=== PATIENT | female | born 1965 | race Caucasian/White ===

== ENCOUNTER 2019-01-03 09:19 | Inpatient (IN) ==
[2019-01-03 10:31] LABS: BASO# 0.02 X1000 (0.0-0.2); BASO% 0.1 % (0.0-0.8); EOS# 0.03 X1000 (0.0-0.7); EOS% 0.2 % (0.0-10.0); HEMATOCRIT 33.6 % (37.0-47.0); HEMOGLOBIN 9.3 g/dL (12.0-16.0); IMM GRAN# 0.07 X1000 (0.0-0.04); IMM GRAN% 0.4 % (0.0-0.5); LYMPH# 1.32 X1000 (1.2-3.4); LYMPH% 7.7 % (20.5-51.1); MCH 18.9 PG (27-31); MCHC 27.7 g/dL (33-37); MCV 68.4 FL (81-99); MONO# 1.31 X1000 (0.11-0.59); MONO% 7.7 % (1.7-9.3); MPV 10.4 FL (7.4-10.4); NEUT# 14.37 X1000 (1.4-6.5); NEUT% 83.9 % (42.2-75.2); PLT 525 X1000 (130-400); RBC 4.91 XMIL (4.2-5.4); RDW 26.5 % (11.5-14.5); WBC 17.12 X1000 (4.8-10.8)
[2019-01-03 10:32] LABS: URINE SOURCE CLEAN CATCH
[2019-01-03 10:44] LABS: BILIRUBIN URINE 2+ (NEGATIVE); BLOOD URINE 4+ (NEGATIVE); CLARITY SL. CLOUDY (CLEAR); COLOR AMBER; GLUCOSE URINE NEGATIVE (NEGATIVE); KETONE URINE TRACE mg/dL (NEGATIVE); LEUKOCYTES URINE 1+ (NEGATIVE); NITRITE URINE POSITIVE (NEGATIVE); PROTEIN URINE 1+(30 mg/dL) mg/dL (NEGATIVE); SP GRAVITY URINE 1.025; UROBILINOGEN URINE 12 mg/dL
[2019-01-03 10:45] LABS: URINE BACTERIA 3+ /HFP; URINE CAST GRANULAR PRESENT /LPF; URINE CRYSTAL CA OXALATE PRESENT /HPF; URINE EPITHELIAL CELLS >10 /HPF (<10); URINE RBC 20-40 /HPF (<10); URINE YEAST PRESENT /HPF
[2019-01-03 10:54] LABS: ESTIMATED GFR > 60
[2019-01-03 10:56] LABS: AGAP 12; BUN 12 mg/dL (8-22); CHLORIDE 98 mmol/L (98-107); COSMO 284; CREATININE 0.8 mg/dL (0.5-0.9); GLUCOSE 155 mg/dL (70-104); POTASSIUM 3.5 mmol/L (3.5-5.1); SODIUM 141 mmol/L (136-145); TCO2 31 mmol/L (25-35)
[2019-01-03 10:57] LABS: ALBUMIN 3.2 g/dL (3.5-5.0); ALKALINE PHOSPHATASE 1003 U/L (32-104); CALCIUM 15.5 mg/dL (8.8-10.2); GOT 150 U/L (10-30); GPT 154 U/L (10-36); LIPASE 13 U/L (13-60); TOTAL PROTEIN 7.6 g/dL (6.3-8.3)
[2019-01-03] MEDS ORDERED: LASIX IV ONE (11:01)
[2019-01-03] MEDS ORDERED: NS 1,000 ML IV ONE (11:02)
--- NOTE | 2019-01-03 11:03 | Diag Imaging Result Doc PS360 ---
EXAM: ABDOMEN FLAT/UPRIGHT HISTORY: abd pain/constipation TECHNIQUE: Flat and upright, two views COMPARISON: None. FINDINGS: No free air beneath the diaphragm. No bowel obstruction. No organomegaly. No foreign body. No abnormal abdominal calcifications. The small degenerative bone spurs. IMPRESSION: No acute abnormality. There is only mild constipation. Electronically signed by Simon Nielsen 01/03/2019 11:01 AM
[2019-01-03] MEDS ORDERED: ROCEPHIN 1 GM in NS 50 ML IV ONE (11:04)
[2019-01-03 11:10] LABS: HYPOCHROM 2+; INR 0.93; LYMPHS 13 % (21-51); MONO 3 % (1-9); PROTIME 12.9 Seconds (11.0-16.0); SEGS 84 % (42-75)
[2019-01-03 11:24] LABS: PTT > 200.0 Seconds (22.3-41.8)
--- NOTE | 2019-01-03 11:36 | Diag Imaging Result Doc PS360 ---
EXAM: CHEST-1 VIEW HISTORY: Sepsis protocol TECHNIQUE: Chest single view COMPARISON: None. FINDINGS: The lungs are well expanded. The heart is not enlarged. Prominent right pericardial fat pad The vessels are not distended. There are no infiltrates. No effusion identified. IMPRESSION: No pneumonia Electronically signed by Simon Nielsen 01/03/2019 11:34 AM
[2019-01-03] MEDS ORDERED: AREDIA 90 MG in NS 1,000 ML IV ONE (12:20)
--- NOTE | 2019-01-03 12:27 | Diag Imaging Result Doc PS360 ---
EXAM: CT ABD/PELVIS W/IV CONT ONLY HISTORY: abd pain TECHNIQUE: CT abdomen and pelvis with intravenous contrast COMPARISON: None. FINDINGS: There is a large enhancing mass in the upper right abdomen measuring 7.5 x 11.0 x 8.4 cm. This is adjacent to the gallbladder, liver, duodenum, stomach, and pancreatic head. It is difficult to tell from which of these this arises. There appears to be a plane it from the liver, stomach, duodenum, and pancreas although this is uncertain. There does appear to be adjacent gallbladder wall thickening and there is intra-and extrahepatic biliary ductal dilatation. No other hepatic lesion. Spleen is not enlarged. Normal pancreatic body and tail. Normal adrenal glands. Normal kidneys. No hydronephrosis. Normal aorta. The lower lungs are clear and there are no pleural effusions. No bowel obstruction. There are scattered colonic diverticula. Normal appendix. No abscess. There is likely a large uterine fibroid measuring 8 cm. The urinary bladder is distended and is normal. Neither ovary is enlarged. IMPRESSION: Large right upper quadrant mass of uncertain etiology. If it is not arising from the gallbladder, it does appear to have spread to the anterior gallbladder wall. This exam was performed using automated exposure control, adjustment of mA or kV according to patient size, and/or use of iterative reconstruction technique. Electronically signed by Simon Nielsen 01/03/2019 12:25 PM
--- NOTE | 2019-01-03 12:38 | PROVIDER DOCUMENTATION ---
This chart was entered by Wiliam Vega Scribe, acting as scribe for Aravind Khan CRNP. HPI-Abdominal Pain/GI Problem - General Chief Complaint: Vomiting Stated Complaint: VOMITING Time Seen by Provider: 01/03/19 09:40 Source: patient Allergies/Adverse Reactions: Patient Allergies Allergy/AdvReac Type Severity Reaction Status Date / Time No Known Allergies Allergy Verified 01/03/19 09:31 Home Medications: Home Medication List Medication Instructions Recorded Confirmed Last Taken Type NK [No Home Medications] 01/03/19 01/03/19 Unknown History - History of Present Illness-ABD Nature of Presenting Problems: Pt is a 53 y/o presents to the ED complaining of vomiting. She reports even the smell of food causes her to vomit. She says when she drinks water it will come right back up. She first report it has been a week and half since her last BM, then says she had something maybe Saturday,( 4 days ago). She geovanny abdominal pain. Quality of Pain: reports: none Onset/Duration: reports: unsure Timing: reports: still present Activities at Onset: reports: none, recent emotional stress Modifying Factors: improves with: nothing Associated Symptoms: reports: vomiting. denies: back/neck pain, cough, diarrhea, fever/chills, genitourinary problems, sinus congestion/drainage, seizure Last BM: 4 days ago Dark Stools Present?: reports: none noticed Emesis Description: reports: clear Review of Systems - Adult - REVIEW OF SYSTEMS - ADULT Constitutional: reports: no symptoms reported Eyes: reports: no symptoms reported Ears, Nose, Mouth & Throat: reports: no symptoms reported Cardiovascular: denies: chest pain, edema Respiratory: denies: cough, shortness of breath, wheezing Gastrointestinal: reports: constipation, vomiting. denies: abdominal pain, diarrhea, nausea, rectal bleeding Genitourinary: reports: no symptoms reported Musculoskeletal: denies: back pain, neck pain Integumentary: reports: no symptoms reported Neurological: denies: dizziness/vertigo, headache/migraines Psychiatric: reports: no symptoms reported Endocrine: reports: no symptoms reported Hematologic/Lymphatic: reports: no symptoms reported Allergic/Immunologic: reports: no symptoms reported All Other Systems: Reviewed and Negative Past History - Adult - PAST MEDICAL HISTORY-ADULT Review of Records: reports: Old Records Reviewed, Nursing Assessment Review, Medications Reviewed - SOCIAL HISTORY Smoking: non-smoker Living Situation: family Physical Exam-General - PHYSICAL EXAM-ADULT Initial Vital Signs Reviewed: Yes - CONSTITUTIONAL General Appearance: appears well, alert, no apparent distress - EYES Eyes: PERRL/EOMI, pink conjunctivae - HEAD, EARS, NOSE, MOUTH & THROAT HENMT: moist mucous membranes, normal ENT inspection - NECK Neck: non-tender, full range of motion, supple, normal inspection - RESPIRATORY Respiratory: lungs clear, normal breath sounds, no pleuratic chest pain, no respiratory distress, no accessory muscle use - CARDIOVASCULAR Cardiovascular: normal peripheral pulses, tachycardia - GASTROINTESTINAL (ABDOMEN) Abdominal Exam: normal bowel sounds, non tender, soft - MUSCULOSKELETAL Back Exam: normal inspection, no CVA tenderness, no vertebral tenderness Extremity: normal range of motion, non-tender, normal gait, normal inspection, no pedal edema - SKIN Integumentary: normal color, normal turgor, warm/dry - NEUROLOGIC Neurologic: grossly normal, no motor/sensory deficits - PSYCHIATRIC Psych/Mental Status: normal mood/affect, normal thought content, normal thought process, oriented x 3 Progress - PLAN OF CARE/RESULTS Progress/Plan/Lab Results: Vital Signs - 8 hr 01/03/19 09:27 Temperature 97.2 F L Pulse Rate 109 H Respiratory Rate 20 Blood Pressure 162/85 O2 Sat by Pulse Oximetry 97 Result Diagrams: 01/03/19 10:10 01/03/19 10:10 - REASSESSMENT Reassessment #1 Time Reassessed: 11:15 Status: other Reassessment Comment: unchanged with c/o dry mouth - XRAY 1 XRAY Study: Abdomen Impression: Abnormal ( EXAM: ABDOMEN FLAT/UPRIGHT HISTORY: abd pain/constipation TECHNIQUE: Flat and upright, two views COMPARISON: None. FINDINGS: No free air beneath the diaphragm. No bowel obstruction. No organomegaly. No foreign body. No abnormal abdominal calcifications. The small degenerative bone spurs. IMPRESSION: No acute abnormality. There is only mild constipation. Electronically signed by Simon Nielsen 01/03/2019 11:01 AM 01/03/19 1101 Interpreting Physician: Simon Nielsen MD Dictated Date/Time: 01/03/19 1100 cc: Aravind Khan; None,PCP) 2 XRAY: Bilateral XRAY Study: Chest Impression: Normal (FINDINGS: The lungs are well expanded. The heart is not enlarged. Prominent right pericardial fat pad The vessels are not distended. There are no infiltrates. No effusion identified. IMPRESSION: No pneumonia) - CT/MRI 1 CT Study: Abdomen, Pelvis Impression: Abnormal (FINDINGS: There is a large enhancing mass in the upper right abdomen measuring 7.5 x 11.0 x 8.4 cm. This is adjacent to the gallbladder, liver, duodenum, stomach, and pancreatic head. It is difficult to tell from which of these this arises. There appears to be a plane it from the liver, stomach, duodenum, and pancreas although this is uncertain. There does appear to be adjacent gallbladder wall thickening and there is intra- and extrahepatic biliary ductal dilatation. No other hepatic lesion. Spleen is not enlarged. Normal pancreatic body and tail. Normal adrenal glands. Normal kidneys. No hydronephrosis. Normal aorta. The lower lungs are clear and there are no pleural effusions. No bowel obstruction. There are scattered colonic diverticula. Normal appendix. No abscess. There is likely a large uterine fibroid measuring 8 cm. The urinary bladder is distended and is normal. Neither ovary is enlarged. IMPRESSION: Large right upper quadrant mass of uncertain etiology. If it is not arising from the gallbladder, it does appear to have spread to the anterior gallbladder wall.) - CONSULTS/PCP/HOSPITALIST Notification #1 *Consult/PCP/Hospitalist*: Dr Owen; Hospitalist Time Discussed: 12:11 Reason/Comments: admission Consult Disposition: Will see in ED Departure - Departure Date of Disposition Decision: 01/03/19 Time of Disposition Decision: 12:36 DIAGNOSIS: Abdominal mass, RUQ (right upper quadrant), Hypercalcemia, Elevated partial thromboplastin time (PTT) Urinary tract infection Qualifiers: Urinary tract infection type: acute cystitis Hematuria presence: with hematuria Qualified Code(s): N30.01 - Acute cystitis with hematuria Disposition: ADMITTED INPATIENT 09 Certified Medical Emergency: Emergent Condition: Fair Referrals and Follow-Ups: None,PCP [Primary Care Provider] - - Critical Care Note This patient required my direct & personal management of CC.: Yes Total Time (mins): 47 Critical Care Statement: This patient required my direct personal management to treat or rule out processes, the absence of which, could potentiallly result in sudden, clinically significant life or limb threatening deterioration. Attestation - Physician/ ROBI Attestation Patient care was provided by Advanced Practice Provider:: Yes Advanced Practice Provider:: Aravind Khan Advanced Practice Provider documentation review:: The Mid-level provider documentation, treatment plan and medical decision making was reviewed by the physician who agrees with all treatment and medical decision making by the MLP. The physician spent face to face time with patient:: No Advanced Practice Provider documentation review:: Supervising physician onsite and consulted in the evaluation and care of this patient. The physician did not have a face to face encounter with the patient. This chart was documented by the indicated scribe, (Wiliam Vega Scribe) and accurately reflects the services I performed and decisions made by , Aravind Khan, KEITH, as attested by the provider's signature.
[2019-01-03] MEDS ORDERED: ZANTAC IV SCH (14:15)
[2019-01-03] MEDS ORDERED: ZOMETA 4 MG in NS 100 ML IV ONE (16:00)
[2019-01-03] MEDS ORDERED: MIACALCIN SUBQ ONE (16:00)
[2019-01-03] MEDS ORDERED: LIPOSYN 20% 500 ML IV SCH (16:30)
[2019-01-03 16:58] LABS: AGAP 13; BUN 12 mg/dL (8-22); CHLORIDE 100 mmol/L (98-107); COSMO 287; CREATININE 0.9 mg/dL (0.5-0.9); ESTIMATED GFR > 60; GLUCOSE 139 mg/dL (70-104); POTASSIUM 3.5 mmol/L (3.5-5.1); SODIUM 143 mmol/L (136-145); TCO2 30 mmol/L (25-35)
[2019-01-03 17:12] LABS: IRON SATURATION 9 %; TIBC 322 ug/dL; TOTAL IRON 30 ug/dL (49-151); UNBOUND IRON 292 ug/dL (112-346)
[2019-01-03 17:45] LABS: CALCIUM 14.6 mg/dL (8.8-10.2)
[2019-01-03 17:48] LABS: FERRITIN 187 ng/mL (13-150)
[2019-01-03 17:50] LABS: PHOSPHORUS 2.9 mg/dL (2.7-4.5)
[2019-01-03 17:51] LABS: CALCIUM 14.6 mg/dL (8.8-10.2)
[2019-01-03] MEDS: ZOSYN 2.25 GM in NS 50 ML IV SCH (20:15)
[2019-01-03] MEDS: NS 1,000 ML IV SCH ×2 (20:16)
[2019-01-03] MEDS: PHENERGAN IV PRN (20:32)
[2019-01-03 20:48] LABS: AGAP 13; BUN 12 mg/dL (8-22); CALCIUM 14.1 mg/dL (8.8-10.2); CHLORIDE 102 mmol/L (98-107); COSMO 290; CREATININE 0.8 mg/dL (0.5-0.9); ESTIMATED GFR > 60; GLUCOSE 129 mg/dL (70-104); POTASSIUM 3.5 mmol/L (3.5-5.1); SODIUM 145 mmol/L (136-145); TCO2 30 mmol/L (25-35)
--- NOTE | 2019-01-03 23:22 | HISTORY AND PHYSICAL ---
Patient came in with nausea, vomiting and poor p.o. intake. She is a no real medical problems. She has no drinking history nothing and she came in for evaluation. She is a 53-year-old female. She was noted to have severe hypercalcemia with a calcium level of 15. Pt has a mass palpable in RUQ. She has had an approximate [address] shows a large mass in her RUQ with an unclear tissue of origin. I am suspicious that her hypercalcemia is related to mailgnancy. We will check other labs for hypercalcemia and treat with pamindronate. We will send to [facility] for consults for surgery, oncology and GI. She has biliary obstruction related to the mass as well and will need this addressed as well, either lap josh or cholecystostomy tube. This was discussed with primary team and Dr Sandhu. cc: En Owen MD MTD
[2019-01-03] MEDS: ZANTAC 50 MG in NS 50 ML IV SCH (23:34)
[2019-01-04] MEDS: ZOSYN 2.25 GM in NS 50 ML IV SCH ×4 (00:14→20:56)
[2019-01-04] MEDS: CLINIMIX E 4.25%-5% SOLUTION 1,000 ML IV SCH ×3 (01:21→22:22)
[2019-01-04] MEDS: LIPOSYN 20% 250 ML IV SCH ×3 (01:36→20:54)
--- NOTE | 2019-01-04 02:04 | HISTORY AND PHYSICAL ---
CHIEF COMPLAINT: Nausea, vomiting that has progressively worsened over the last 2 months, to the point over the past 2 weeks she has been unable to hold any liquids down as well. HISTORY OF PRESENT ILLNESS: This is a 53-year-old female who presents to [facility] ER with complaints of nausea, vomiting. States this has been occurring for the past 2 months. Over the past 2 weeks even drinking water has caused her to vomit. She has had some mild right upper quadrant epigastric abdominal pain. Her workup showed a white blood cell count of 17.12. Her PTT was initially greater than 200, her calcium level was 15.5, total bilirubin was 4.40, AST 150, ALT 154, alkaline phosphatase 1003. We did an abdomen x-ray that showed no acute abnormality, only mild constipation. CT of the abdomen and pelvis showed a large right upper quadrant mass of uncertain etiology, if it is not arising from the gallbladder it does appear to have spread to the anterior gallbladder wall. No bowel obstruction is noted. Patient is noted to be jaundiced with scleral icterus noted, roe she will be transferred to the [facility] for further evaluation and treatment. PAST MEDICAL HISTORY: None. PAST SURGICAL HISTORY: Bilateral tubal ligation. FAMILY HISTORY: Her mom and aunt had cervical cancer. SOCIAL HISTORY: She currently lives with family. Denies any tobacco, alcohol, or illicit drug use. ALLERGIES: She has no known drug allergies. HOME MEDICATIONS: She does not take any medications on a routine basis. LABORATORY DATA: Showed a white blood cell count of 17.12, hemoglobin 9.3, hematocrit 33.6, platelets 525. PT and INR of 12.9 and 0.93. Initial PTT was greater than 200. Repeat 2-1/2 hours later was down to 29. An ionized calcium was 1.99, sodium of 141, potassium 3.5, chloride 98, CO2 of 31, BUN of 12, creatinine 0.8. Glucose 85, calcium 15.5, magnesium 2.1, total bilirubin of 4.40, AST of 150, ALT 154, alkaline phosphatase 1003. Cardiac enzymes were negative. Amylase of 25, lipase 13, plasma lactate 1.2. Urinalysis with positive nitrite, 1+ white blood cells, 3+ bacteria. Urine test was negative. Abdomen x-ray showed no acute abnormality, only mild constipation. Chest x-ray showed no pneumonia. Abdomen and pelvis CT showed an impression of a large right upper quadrant mass of uncertain etiology, if it is not arising from the gallbladder it does appear to have spread to the anterior gallbladder wall. The mass was measured at 7.5 x 11 x 8.4. REVIEW OF SYSTEMS: She denied any fever, chills, blurred vision, dizziness, chest pain, coughing, shortness of breath. She is positive for right upper quadrant abdominal pain, nausea, vomiting, jaundice. Denied any constipation, diarrhea. She denies any burning or hurting with urination. PHYSICAL EXAMINATION: VITAL SIGNS: On arrival, she had a temperature of 102 degrees, pulse 109, respirations 20, blood pressure 162/85, saturating 97% on room air. GENERAL: This is a 53-year-old female lying in the bed and answers questions appropriately. HEENT: She is noted to be jaundiced in color. Normal ENT inspection. Oropharynx and nares are clear. Eyes with scleral icterus. Extraocular movements are intact. Pupils are equal, round, and reactive to light and accommodation. NECK: Normal inspection. Normal range of motion. LUNGS: Clear to auscultation bilaterally with equal lung expansion and chest wall movement. HEART: With regular rate and rhythm. No murmurs, rubs, or gallops. ABDOMEN: Soft. There is some mild tenderness to the right upper quadrant upon palpation. Bowel sounds were hypoactive. MUSCULOSKELETAL: She has 5/5 strength. Moves all extremities well. NEUROLOGICAL: The cranial nerves 2-12 appear grossly intact. ASSESSMENT: 1. Right upper quadrant mass of uncertain etiology. 2. Hypercalcemia. 3. Urinary tract infection. 4. Jaundice. 5. Elevated liver function tests secondary to #1. PLAN: She is being transferred to the [facility]. Placed on healthy heart diet, telemetry. Funez catheter indwelling. SCDs for DVT prophylaxis. We are consulting general surgery and we will check a TIBC, ferritin, folate, vitamin B12, PTH, with CEA and phosphorus, serum protein electrophoresis, vitamin B12, plasma lactate, serial BMP, do a CT-guided liver biopsy. We gave her 50 units of calcitonin, normal saline at 150 mL/h, Zantac 50 mg IV q.8 hours, morphine 2 mg IV q.4 hours p.r.n., normal saline at 100 mL/h, Zosyn 2.25 g IV q.6 hours. Check an ammonia level, hepatic function. Remain NPO. We will consult Gastroenterology and Oncology. Further orders after seen by attending and by consultants. Dictated by KEITH Brunson for En Owen MD cc: KEITH Brunson MD
[2019-01-04] MEDS ORDERED: TORADOL IV ONE (03:03)
[2019-01-04] MEDS: NS 1,000 ML IV SCH ×4 (04:04→13:52)
--- NOTE | 2019-01-04 05:15 | GENERAL SURGERY CONSULTATION ---
DATE: 01/03/2019 REASON FOR CONSULTATION: Liver mass. HISTORY OF PRESENT ILLNESS: This is a 53-year-old female who presented to the hospital with progressive nausea and vomiting. She says she began feeling nauseated and weak about 2 months ago. She has lost about 80 pounds since that time. She has had episodes of vomiting intermittently during this time, and then over the last 2 weeks she has had much worsened vomiting. She has been unable to keep much of anything down by mouth. She has had a few bowel movements, but her last 1 was 3 or 4 days ago. She denies abdominal pain, fever, chills, or other systemic complaints. PAST MEDICAL HISTORY: None. PAST SURGICAL HISTORY: Bilateral tubal ligation. HOME MEDICATIONS: None. ALLERGIES: No known drug allergies. SOCIAL HISTORY: Negative for tobacco, alcohol or illicit drug use. FAMILY HISTORY: She has a mother and aunt who had ovarian cancer. REVIEW OF SYSTEMS: Ten systems reviewed and negative, except as noted above. PHYSICAL EXAMINATION: Vital Signs: Temperature 97 degrees, pulse 72, respirations 16, blood pressure 139/83. O2 saturation 99%. General: Well-developed female in no distress, looks her stated age. HEENT: Normocephalic, atraumatic. Extraocular muscles intact. Pupils equal, round, reactive to light. Sclerae slightly icteric. Neck: Supple. No thyromegaly. Cardiovascular: Regular rate and rhythm. Respiratory: Bilateral equal breath sounds. No work of breathing. Gastrointestinal: Soft, obese. There is a firm palpable mass in the right upper quadrant, nontender. No organomegaly or mass. Extremities: No clubbing, cyanosis, or edema. Abdomen: Nontender and nondistended. There is no organomegaly. Extremities: No clubbing, cyanosis, or edema. Skin: Warm and dry. No rash. Musculoskeletal: Moves all extremities equally and well. LABORATORY: White blood cell count 17,000, hemoglobin 9, hematocrit 33.6, platelet count 525,000. Basic metabolic profile reviewed and unremarkable, except for calcium 15.5, total bilirubin 4.4, AST 150, ALT 154, alkaline phosphatase 1003. Lipase and amylase normal. Urinalysis: Positive for nitrite, white blood cells, and bacteria. Urine test negative. IMAGING: CT of abdomen and pelvis with IV contrast only shows a large right upper quadrant mass of uncertain etiology. It measures 11 cm in greatest dimension. It abuts the gallbladder, liver, duodenum, stomach and pancreatic head. There is intra- and extrahepatic biliary ductal dilation. ASSESSMENT AND PLAN: A 53-year-old female with gastric outlet obstruction secondary to a right upper quadrant mass. The etiology is unclear. We will make her NPO and start Clinimix and lipids. I have consulted Dr. Roque for EGD evaluation, and then I am planning a CT scan on Saturday with oral and triple phase IV antibiotics for further elucidation of this mass. It remains to be seen if this is even resectable. Thank for the consultation. cc: Lavelle Sandhu MD
[2019-01-04] MEDS: ZANTAC 50 MG in NS 50 ML IV SCH ×3 (05:20→22:22)
[2019-01-04 08:06] LABS: BASO# 0.04 X1000 (0.0-0.2); BASO% 0.2 % (0.0-0.8); EOS# 0.06 X1000 (0.0-0.7); EOS% 0.3 % (0.0-10.0); HEMATOCRIT 30.9 % (37.0-47.0); HEMOGLOBIN 8.7 g/dL (12.0-16.0); IMM GRAN# 0.15 X1000 (0.0-0.04); IMM GRAN% 0.7 % (0.0-0.5); LYMPH# 1.45 X1000 (1.2-3.4); LYMPH% 7.2 % (20.5-51.1); MCH 19.4 PG (27-31); MCHC 28.2 g/dL (33-37); MONO# 1.37 X1000 (0.11-0.59); MONO% 6.8 % (1.7-9.3); MPV 11.4 FL (7.4-10.4); NEUT# 17.09 X1000 (1.4-6.5); NEUT% 84.8 % (42.2-75.2); PLT 404 X1000 (130-400); RBC 4.48 XMIL (4.2-5.4); RDW 27.4 % (11.5-14.5); WBC 20.16 X1000 (4.8-10.8)
[2019-01-04 08:23] LABS: ALB/GLOB RATIO 0.7; ALBUMIN 2.8 g/dL (3.5-5.0); DIRECT BILIRUBIN 3.7 mg/dL (0.00-0.20); POTASSIUM 3.1 mmol/L (3.5-5.1); TOTAL BILIRUBIN 4.44 mg/dL (0.20-1.00); TOTAL PROTEIN 6.7 g/dL (6.3-8.3)
[2019-01-04] MEDS: MORPHINE IV PRN (08:53)
[2019-01-04] MEDS ORDERED: VENOFER 200 MG in NS 100 ML IV SCH (09:00)
[2019-01-04 09:28] LABS: CALCIUM 12.8 mg/dL (8.8-10.2)
--- NOTE | 2019-01-04 09:59 | Diag Imaging Result Doc PS360 ---
EXAM: CT HEAD W/O CONTRAST HISTORY: headache TECHNIQUE: Emergency CT of the head without contrast COMPARISON: None. FINDINGS: No parenchymal hemorrhage. No epidural or subdural hematoma. No subarachnoid hemorrhage. No mass identified on this noncontrasted exam. No hydrocephalus. There is fluid in the left mastoid sinus IMPRESSION: 1.No hemorrhage 2.Fluid in the left mastoid sinus This exam was performed using automated exposure control, adjustment of mA or kV according to patient size, and/or use of iterative reconstruction technique. Electronically signed by Simon Nielsen 01/04/2019 9:57 AM
--- NOTE | 2019-01-04 10:44 | CONSULTATION ---
DATE OF CONSULTATION: 01/04/2019 HISTORY OF PRESENT ILLNESS: Ms. Stuart is a 53-year-old white female with no known history of malignancy, admitted with intractable nausea, vomiting and weight loss. She states that anytime she was around food, smelled food, she had nausea, and she has been unable to hold down solid foods for almost 2 to 3 months. She has lost 60 to 80 pounds in that time period. She surprisingly had very little abdominal pain. She has had only infrequent bowel movements this past week but denies melena or hematochezia. She has had headache in the past 24 to 48 hours since being admitted. PAST MEDICAL HISTORY: Essentially negative. MEDICATIONS: She was on no medications. PAST SURGICAL HISTORY: She has had tubal ligation. ALLERGIES: No known allergies. SOCIAL HISTORY: She does not smoke or drink. Denies any illicit drugs. FAMILY HISTORY: She has a mother with ovarian cancer. REVIEW OF SYSTEMS: Notable for the above complaints. She has had weakness. She denies any chest pain. She has had no cough or hemoptysis. No hematemesis and no melena. PHYSICAL EXAMINATION: An obese white female in no acute distress. Her blood pressure was normotensive. Pulse was 80 and regular. HEENT: There is no icterus. Oropharynx without lesions. Dentition in poor repair. Neck was supple without adenopathy or thyromegaly. Lungs revealed bilateral breath sounds, clear to auscultation and percussion. Heart: Regular rate and rhythm. No murmur or gallop. The abdomen was obese. There was a firm swelling in the right upper quadrant. I could not really appreciate the borders of her mass, but it is certainly palpable. Abdomen had hypoactive bowel sounds. There was no guarding or rebound tenderness. Extremities showed no cyanosis, clubbing or edema. Neurologic: Nonfocal. DIAGNOSTIC DATA: Her initial blood work reveals a hemoglobin of 9, hematocrit 33.6, white count was elevated at 17,000, platelets normal. Metabolic profile was notable for a calcium of 15.5. Liver function tests were elevated. Bilirubin was elevated at 4.4 with an alkaline phosphatase of 1000. Urinalysis was positive for nitrites, white cells and bacteria. CT scan of the abdomen and pelvis shows a large right upper quadrant mass measuring 11 x 8 x 7.5 cm. It was questionable whether this arose from the pancreatic or biliary tree. There was no associated adenopathy. Chest x-ray showed no abnormality. IMPRESSION: 1. Right upper quadrant mass with presumed pancreatic or biliary or gallbladder primary. The patient obviously needs a tissue diagnosis to confirm. She has hypercalcemia of malignancy and has received appropriate treatment with saline and Aredia. Her calcium level this morning is improved at 12.8. I would repeat Aredia infusion at 48 hours and continue saline hydration to promote calcium excretion. The patient was complaining of headache this morning, and I would recommend a CT or an MRI of the brain to rule out [employer] metastasis, although this appears to be related to her treatment of hypercalcemia. 2. Probable urinary tract infection. She has been started empirically on antibiotics which is appropriate. 3. Abnormal liver function tests. This appears to be secondary to her underlying tumor. I have discussed all of the above with the patient and her mother, who voiced understanding and agreement. cc: Rubén Clay MD
--- NOTE | 2019-01-04 10:45 | PROGRESS NOTE ---
DATE: 01/04/2019 SUBJECTIVE: This morning, Ms. Stuart refers to be feeling slightly lightheaded. She also complained of some headaches.. Ms. Stuart was transferred from [place] yesterday over here for a higher level of care. She has had approximately over a 60 pound weight loss within a month. No appetite. Upon presenting to [place], she was evaluated and found to have an intra-abdominal right upper quadrant mass of uncertain etiology. This morning, she think she feels slightly stronger than yesterday. OBJECTIVE: Vital Signs: Blood pressure is 136/70, pulse of 110, respirations are 16, temperature is 102.7 degrees and a repeat is 103. General Examination: Ms. Stuart is a 61-year-old, female. She is in bed. She does not seem to be in any cardiopulmonary distress. HEENT: Mucosa is pink, slightly icteric. Neck: Supple. No JVD. Chest: Good air entry bilaterally. There were no crepitations, no rhonchi. Cardiovascular: Regular rate and rhythm. There are no murmurs, no rubs, no gallops. GI: Abdomen is soft. It is distended. There is a palpable mass in the right upper quadrant. It is nontender. Extremities: No pedal edema. 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 Laboratory Data: WBC is up to 20.16, hemoglobin is 8.7, platelet count of 404,000. Chemistry is also reviewed. Calcium is down to 12.8. Liver enzymes are all elevated but they are trending down. The urinalysis seems to be positive with nitrites. So far, blood cultures are still pending. The patient is on IV antibiotics (Zosyn). A CT scan of the abdomen and pelvis with IV contrast yesterday showed a large right upper quadrant mass of uncertain etiology. If it is not arising from the gallbladder, it does appear to have spread to the anterior gallbladder wall. ASSESSMENT: 1. A large right upper quadrant mass of uncertain etiology. It appears that it is arising from either the gallbladder or the pancreas. Hematology/oncology and surgery have been consulted. We are going to continue to do the workup to get a better idea. With the history, it certainly does appear that this is a malignant mass. 2. Malignant hypercalcemia. Patient was given Aredia yesterday. She is currently on intravenous fluids. Calcium is trending down. 3. Suspected urinary tract infection. The patient is on intravenous antibiotics. 4. Jaundice associated with fever, concerning for cholangitis. The patient is on broad-spectrum intravenous antibiotics. Blood cultures have been done and we are pending the results. 5. Iron deficiency anemia. Will hold off on venofer infusion until after infection cleared. 6. Generalized weakness associated with significant weight loss, likely due to the underlying malignancy. 7. Sepsis. Etiology is currently unclear. We presume it is either from urinary tract infection or from cholangitis. Blood cultures have been done. Patient is on broad- spectrum intravenous antibiotics. We will continue adequate hydration and await for the culture report. The patient is also pending to be seen by gastroenterology for possible esophagogastroduodenoscopy and possible endoscopic retrograde cholangiopancreatography. PLAN: In general, I think Ms. Stuart is very sick. She has been spiking some temperature. White cell count has gone up. We think she has some infection going on. It probably from the urinary tract infection. However, we also suspect that there could be stasis in the CBD causing some element of cholangitis. Patient is on IV antibiotics. GI has been consulted. The patient is also being seen by surgery. We are going to continue with the IV fluids and continue monitoring the calcium levels, and await for the other lab work that has been sent out for the calcium studies. cc: Ariel Kaur MD MTDTyrel
[2019-01-04 11:05] LABS: ANISOCYTOSIS 2+; BANDS 6 % (0-1); HYPOCHROM 2+; LYMPHS 4 % (21-51); MICROCYTOSIS 3+; MONO 12 % (1-9); POIKILOCYTOSIS 1+; SEGS 78 % (42-75)
[2019-01-04] MEDS: TYLENOL PO PRN ×2 (12:47→21:07)
--- NOTE | 2019-01-04 14:16 | GENERAL SURGERY PROGRESS NOTE ---
DATE: 01/04/2019 SUBJECTIVE: There have been no acute changes overnight. OBJECTIVE: Temperature maximum 102.7 degrees, pulse 110, respirations 16, blood pressure 136/70.General: She is awake, alert, oriented x4. No acute distress. Gastrointestinal: Soft with mass in the right upper quadrant, nontender. LABORATORY: White blood cell count 20,000, hemoglobin 8.7, hematocrit 30.9. Electrolytes reviewed and unremarkable. Total bilirubin 4.4, AST 91, ALT 123, alkaline phosphatase 928. ASSESSMENT AND PLAN: A 53-year-old female with right upper quadrant mass and gastric outlet obstruction. We have made her n.p.o. and started her on Clinimix. Dr. Roque has been consulted for EGD evaluation, and we are planning a triple-phase CT scan on Saturday. cc: Lavelle Sandhu MD
[2019-01-04] MEDS: PHENERGAN IV PRN (18:01)
--- NOTE | 2019-01-04 18:50 | GASTROENTEROLOGY CONSULTATION ---
DATE: 01/04/2019 REASON FOR CONSULTATION: Right upper quadrant mass and possible gastric outlet obstruction. HISTORY OF PRESENT ILLNESS: This is a pleasant lady who comes in with 2-to-3 week history of persistent nausea and vomiting, even unable to keep anything down even water down. I was asked to see if she has gastric outlet obstruction. However, when I reviewed the abdominal CT as well as abdominal x-ray, I do not see any dilated stomach. Abdominal x-ray did not reveal any duodenal obstruction either. Her calcium level is 15.5, and bilirubin and LFTs are all abnormal with the dilated intra- and extrahepatic bile ducts. PAST MEDICAL HISTORY: None. PAST SURGICAL HISTORY: Bilateral tubal ligation. FAMILY HISTORY: Cervical cancer. SOCIAL HISTORY: Lives with family. ALLERGIES: None. HOME MEDICATIONS: None. PHYSICAL EXAMINATION: She came in with fever. Today, also she had fever. A 61-year-old lady not in any cardiopulmonary distress. HEENT: Icteric. Heart: Normal. Lungs: Normal. Abdomen: Distended. There is a mass in the right upper quadrant. Mildly tender. LABORATORY DATA: White count 20,000. Hemoglobin low. Platelet count 404,000. Calcium is down to 12.8. LFTs are trending down. The patient is on Zosyn. IMPRESSION: 1. And plan a large right upper quadrant mass of uncertain etiology. Rule out mass with abscess because she appears to be infected. 2. Malignant hypercalcemia. 3. Urinary tract infection. 4. Jaundice. cholangitis versus infected Tumor/abscess. 5. Iron-deficiency anemia. 6. Weakness. 7. Sepsis. 8. Gastrointestinal prophylaxis. RECOMMENDATIONS: We will see how she does clinically. N.p.o. on Clinimix is good. I am not sure she is obstructed. This is all related to her severe malignant hyperglycemia and sepsis but would do an EGD, but she also needs three-phase CT and possibly surgical intervention to look at this mass which has [*] abnormalities but also has a mass affect pressing on the bile duct. Possibility of gallbladder cancer is there but doubt considering the size of the tumor. Will continue to follow this patient with you. We will plan on possibly doing an EGD on Saturday. cc: Reagan Roque MD
[2019-01-05] MEDS: NS 1,000 ML IV SCH ×3 (02:54→23:19)
[2019-01-05] MEDS: ZOSYN 2.25 GM in NS 50 ML IV SCH ×4 (03:11→21:15)
[2019-01-05] MEDS: ZANTAC 50 MG in NS 50 ML IV SCH ×3 (04:04→23:19)
[2019-01-05] MEDS: TYLENOL PO PRN ×2 (06:17→21:28)
[2019-01-05 07:00] LABS: BASO# 0.02 X1000 (0.0-0.2); BASO% 0.1 % (0.0-0.8); EOS# 0.05 X1000 (0.0-0.7); EOS% 0.3 % (0.0-10.0); HEMATOCRIT 27.4 % (37.0-47.0); HEMOGLOBIN 7.5 g/dL (12.0-16.0); IMM GRAN# 0.06 X1000 (0.0-0.04); IMM GRAN% 0.4 % (0.0-0.5); LYMPH# 1.58 X1000 (1.2-3.4); LYMPH% 9.9 % (20.5-51.1); MCH 19.3 PG (27-31); MCHC 27.4 g/dL (33-37); MCV 70.6 FL (81-99); MONO% 8.8 % (1.7-9.3); MPV 10.9 FL (7.4-10.4); NEUT# 12.89 X1000 (1.4-6.5); NEUT% 80.5 % (42.2-75.2); PLT 366 X1000 (130-400); RBC 3.88 XMIL (4.2-5.4); RDW 26.2 % (11.5-14.5)
[2019-01-05 07:12] LABS: AGAP 10; BUN 14 mg/dL (8-22); CHLORIDE 101 mmol/L (98-107); COSMO 281; GLUCOSE 154 mg/dL (70-104); POTASSIUM 2.7 mmol/L (3.5-5.1); SODIUM 139 mmol/L (136-145); TCO2 28 mmol/L (25-35)
[2019-01-05 07:13] LABS: ALB/GLOB RATIO 0.7; ALBUMIN 2.6 g/dL (3.5-5.0); ALKALINE PHOSPHATASE 785 U/L (32-104); CALCIUM 11.2 mg/dL (8.8-10.2); CREATININE 0.8 mg/dL (0.5-0.9); ESTIMATED GFR > 60; GOT 85 U/L (10-30); GPT 110 U/L (10-36); TOTAL BILIRUBIN 6.61 mg/dL (0.20-1.00); TOTAL PROTEIN 6.3 g/dL (6.3-8.3)
[2019-01-05] MEDS: SODIUM CHLORIDE 0.9% INJ PRN ×2 (08:53→17:49)
[2019-01-05] MEDS: PHENERGAN IV PRN ×2 (08:53→17:49)
[2019-01-05] MEDS: LIPOSYN 20% 250 ML IV SCH (09:10)
[2019-01-05] MEDS ORDERED: KLOR-CON PO ONE (10:06)
--- NOTE | 2019-01-05 11:41 | GENERAL SURGERY PROGRESS NOTE ---
DATE: 01/05/2019 SUBJECTIVE: Clinically, overall, seemed about the same. Having some nausea, she says. OBJECTIVE: Temperature up to 102, but afebrile this morning. General: She is alert. She does appear to be jaundiced. Abdomen is soft, nontender. White count is down to 16. Her bilirubin is elevated at 6.61. ASSESSMENT AND PLAN: This is a 53-year-old female with a right upper quadrant mass, possible gallbladder etiology. Dr. Roque plans esophagogastroduodenoscopy. She may ultimately need endoscopic retrograde cholangiopancreatography as well, given her obstructive jaundice picture. We will continue to follow along. Follow his results or findings tomorrow. cc: Kareem Neumann MD
[2019-01-05] MEDS: CLINIMIX E 4.25%-5% SOLUTION 1,000 ML IV SCH (12:19)
[2019-01-05] MEDS: POTASSIUM CHLORIDE 20 MEQ/SWI 20 MEQ/100 ML IVPB IV SCH ×2 (13:08→15:17)
[2019-01-05 14:28] LABS: HEMOGLOBIN 7.7 g/dL (12.0-16.0)
--- NOTE | 2019-01-05 14:47 | PROGRESS NOTE ---
DATE: 01/05/2019 SUBJECTIVE: She has no major complaints. She is lying in bed. She still has a very kind of happy disposition. OBJECTIVE: Blood pressure 120/53, heart rate of 75, respiratory rate of 20, temperature 100.6 degrees.Cardiovascular: Regular rate and rhythm. Pulmonary: Bilateral breath sounds clear to auscultation. GI: Soft. She has an indurated mass in her right upper quadrant. She has scleral icterus on eye exam. LABORATORY DATA: Potassium is 2.7, her creatinine is 0.8, her calcium is down to 11.2, her T bilirubin is up to 6.6, AST and ALT of 85, 110, alkaline phosphatase of 785. PROBLEM LIST: 1. Right upper quadrant mass which may be biliary versus pancreatic cholangiocarcinoma. We are waiting on treatment. I still think she needs a biopsy but we are possibly doing a biopsy, Dr. Sandhu canceled the biopsy but I guess she is going to get a EEG tomorrow and possibly they will get a biopsy at that point. I guess if we do not get tissue from EGD she may need a biopsy but will continue to monitor. Continue supportive care. Her tumor markers are still pending. Her CA was elevated but is not very specific unfortunately. 2. Hypercalcemia again presumably of malignancy. Workup is in place. She has had pamidronate recently. She is getting normal saline. 3. Severe protein-calorie malnutrition. She is on Clinimix and triglycerides. Will continue to follow because she has not really been able to eat. 4. Possible cholangitis, biliary obstruction. She is on Zosyn. Cultures are thus far negative. She still has very elevated liver enzymes. We are waiting on a 3-phase CT scan and then decide about other treatment options. She will need an EGD and possibly ERCP. Anticipate we are going to do those tomorrow. I think at some point with her gallbladder dilation she may need some sort of intervention from that standpoint especially if her levels continue to rise. 5. Hypokalemia which may be a type of refeeding. We will get her treatment, will supplement and follow. cc: En Owen MD
[2019-01-06] MEDS: CLINIMIX E 4.25%-5% SOLUTION 1,000 ML IV SCH ×2 (01:33→13:30)
[2019-01-06] MEDS: ZOSYN 2.25 GM in NS 50 ML IV SCH ×3 (02:30→13:35)
[2019-01-06] MEDS: ZANTAC 50 MG in NS 50 ML IV SCH ×3 (05:40→21:41)
[2019-01-06 08:23] LABS: BASO# 0.01 X1000 (0.0-0.2); BASO% 0.1 % (0.0-0.8); EOS% 0.8 % (0.0-10.0); HEMATOCRIT 24.1 % (37.0-47.0); HEMOGLOBIN 6.6 g/dL (12.0-16.0); IMM GRAN# 0.06 X1000 (0.0-0.04); IMM GRAN% 0.5 % (0.0-0.5); LYMPH# 1.23 X1000 (1.2-3.4); LYMPH% 9.3 % (20.5-51.1); MCH 19.3 PG (27-31); MCHC 27.4 g/dL (33-37); MCV 70.5 FL (81-99); MONO# 1.14 X1000 (0.11-0.59); MONO% 8.6 % (1.7-9.3); NEUT# 10.66 X1000 (1.4-6.5); NEUT% 80.7 % (42.2-75.2); PLT 302 X1000 (130-400); RBC 3.42 XMIL (4.2-5.4); RDW 26.2 % (11.5-14.5)
[2019-01-06] MEDS ORDERED: DIPRIVAN 1% ONE (08:26)
[2019-01-06] MEDS ORDERED: XYLOCAINE-MPF 2% ONE (08:27)
[2019-01-06 08:39] LABS: AGAP 10; ALB/GLOB RATIO 0.6; ALBUMIN 2.1 g/dL (3.5-5.0); ALKALINE PHOSPHATASE 625 U/L (32-104); BUN 11 mg/dL (8-22); CALCIUM 9.6 mg/dL (8.8-10.2); CHLORIDE 103 mmol/L (98-107); COSMO 275; CREATININE 0.5 mg/dL (0.5-0.9); ESTIMATED GFR > 60; GLUCOSE 167 mg/dL (70-104); GOT 40 U/L (10-30); GPT 70 U/L (10-36); POTASSIUM 3.3 mmol/L (3.5-5.1); SODIUM 136 mmol/L (136-145); TCO2 23 mmol/L (25-35); TOTAL BILIRUBIN 4.23 mg/dL (0.20-1.00); TOTAL PROTEIN 5.6 g/dL (6.3-8.3)
--- NOTE | 2019-01-06 09:40 | OPERATIVE NOTE ---
PROCEDURE DATE: 01/06/2019 PROCEDURE PERFORMED: Upper GI endoscopy. PROVIDER: Rubén Bautista MD. INDICATIONS: Intra-abdominal mass, anemia, rule out upper GI etiology. MEDICATIONS: Monitored anesthesia care. DESCRIPTION OF PROCEDURE: Prior to procedure, a history and physical was performed. Patient medication and allergies were reviewed. The patient's tolerance to previous anesthesia was also reviewed. The risks and benefits of the procedure and sedation options and risks were discussed with the patient. All questions were answered and informed consent was obtained. After reviewing the risks and benefits, the patient was deemed in satisfactory condition to undergo the procedure. The endoscope was passed under direct visualization. Throughout the procedure, the patient's blood pressure, pulse, and oxygen saturation were monitored continuously. Endoscope was advanced through the mouth and advanced to the second part of the duodenum. The upper GI endoscopy was accomplished without difficulty. The patient tolerated the procedure well. COMPLICATIONS: No immediate complications. ESTIMATED BLOOD LOSS: Minimal. FINDINGS: Normal upper GI endoscopy. The Z-line was regular at 40 cm from the incisors. IMPRESSION: Normal endoscopy. RECOMMENDATIONS: Start clear liquid diet. We will discuss with Dr. Roque further evaluation of intraabdominal mass. We will follow with you. Please call with any questions or concerns. [facility]
[2019-01-06] MEDS: MORPHINE IV PRN (11:31)
[2019-01-06] MEDS: PHENERGAN IV PRN (11:32)
--- NOTE | 2019-01-06 12:49 | PROGRESS NOTE ---
DATE: 01/06/2019 SUBJECTIVE: This morning, Ms. Stuart refers to be doing fairly okay, did have EGD early on today and she has been pending for an MRI today. OBJECTIVE: General: Ms. Stuart is a 53-year-old female. She is in bed no signs of cardiopulmonary distress. HEENT: Mucosa is pink and moist. Anicteric. Acyanotic. Neck: Supple. No JVD. Chest: Air entry is bilaterally reduced but no crepitations, no rhonchi. Cardiovascular: Regular rate and rhythm. Gastrointestinal: Abdomen is soft, is distended. There is a palpable mass in the right upper quadrant, is nontender. Extremities: No pedal edema. Central nervous system: Patient is awake, alert and oriented. LABORATORY DATA: Has been reviewed. WBC is down to 13.30, hemoglobin is 6.6, platelet count of 303,000. Chemistry is also reviewed. Liver function tests continues to come down. The patient's calcium is down to 9.6. ASSESSMENT: 1. Large right upper quadrant mass of uncertain etiology. We will continue the diagnostic assessment. 2. Malignant hypercalcemia. Patient was given Aredia. Serum calcium has now normalized. 3. Jaundice associated with fever concerning for cholangitis. Patient is on broad-spectrum antibiotics. So far, blood cultures have been negative. 4. Generalized weakness associated with significant weight loss concerning for underlying malignancy. We will continue the diagnostic workup. 5. Sepsis, improved. 6. Microcytic anemia with underlying iron deficiency. Patient is getting blood transfusion. PLAN: In general, Ms. Stuart got an EGD this morning which seems to be unremarkable. There is an order for an MRI. We will follow up with the report. She is pending 2 units of PRBC transfusion today. We will continue with the current IV antibiotics. cc: Ariel Kaur MD [facility]
--- NOTE | 2019-01-06 13:01 | Diag Imaging Result Doc PS360 ---
MRI ABDOMEN W/WO CONTRAST - 01/06/2019 INDICATION: abdominal mass r/o HCC or hemangioma TECHNIQUE: COMPARISON: CT from 01/03/2019 FINDINGS: There is severe patient motion artifact throughout the exam. There is a large mass at the anterior inferior liver extending into the gallbladder fossa. This measures 9.2 x 11.7 x 10.5 cm in craniocaudal, lateral, and AP dimensions. This completely borders the anterior surface of the gallbladder. The mass also borders the anterior surface of the duodenum, mainly the entire descending duodenum. It is unclear if the mass borders the pancreatic head. This appears less likely. The gallbladder is rather distended. There are numerous gallstones within the gallbladder. No significant wall thickening or free fluid. No significant intrahepatic biliary dilation. There is significant dilation of the common bile duct. There is at least one stone in the distal common bile duct which is a rather small stone. The common bile duct measures about 13 mm. The spleen is somewhat enlarged measuring 13.7 x 8.3 cm. There appears to be some wall thickening at the superior portion of the gallbladder wall near where it contacts the mass. IMPRESSION: 1. Large mass at the gallbladder fossa. This contacts and could arise from the liver, gallbladder, and duodenum mainly. 2. Numerous gallstones in the gallbladder. Small gallstone in the distal common bile duct. There is moderate dilation of the common bile duct but not very much intrahepatic biliary dilation. 3. Indeterminate abnormal thickening of the superior gallbladder wall. 4. Splenomegaly. Electronically signed by Anand Schultz 01/06/2019 12:58 PM
[2019-01-06] MEDS: NS 1,000 ML IV SCH (13:11)
[2019-01-06] MEDS: TYLENOL PO PRN (13:28)
[2019-01-06] MEDS: LIPOSYN 20% 500 ML IV SCH (13:29)
--- NOTE | 2019-01-06 15:06 | GENERAL SURGERY PROGRESS NOTE ---
DATE: 01/06/2019 SUBJECTIVE: The patient feels okay today. No new problems. She recently underwent EGD and MRI. OBJECTIVE: She is afebrile. Vital signs are stable. General: She is awake, alert, and oriented x3. No acute distress. GI: Soft. There is a firm mass in the right upper quadrant. Laboratory: White blood cell count 13,000, hemoglobin 6.6, hematocrit 24. Total bilirubin 4.2. Imaging: Abdominal MRI shows a large right upper quadrant mass, unclear etiology including liver, gallbladder, or duodenum. Other Diagnostic Data: EGD today showed a clear stomach and first and second portions of the duodenum. ASSESSMENT AND PLAN: A 53-year-old female with a large right upper quadrant mass causing biliary obstruction and gastric outlet obstruction secondary to extrinsic compression. The mass does not appear to be resectable on imaging. We need to continue pursuing diagnosis and palliative treatments. She is likely going to get an endoscopic retrograde cholangiopancreatography tomorrow with brushings of the bile duct and possible stent placement. Then we may need to consider percutaneous CT-guided biopsy of the mass and future gastrojejunostomy bypass for palliation. cc: Lavelle Sandhu MD
--- NOTE | 2019-01-06 17:03 | HEMO/ONC CONSULTATION ---
DATE: 01/06/2019 CONSULTATION REQUESTED BY: Hospitalist service CONSULTATION IS FOR: GI malignancy. HISTORY OF PRESENT ILLNESS: Ms Stuart is a 53-year-old female who initially presented to [facility] complaining of nausea, vomiting that had worsened over really 2 months but significantly worsened over the 2 weeks prior to presentation. The patient also had some yellowing of the skin on admission. She was examined had some right upper quadrant/epigastric abdominal tenderness. A CT of the abdomen and pelvis showed a large right upper quadrant mass of uncertain etiology. She has now been transferred to [facility] for further evaluation and treatment. We have been consulted as the mass is highly suspicious for carcinoma. PAST MEDICAL HISTORY: No significant past medical history has been noted. PAST SURGICAL HISTORY: Bilateral tubal ligation. FAMILY HISTORY: Her mother recently from a "female cancer" which I believe may be cervical cancer. She also has a maternal aunt of cervical cancer. Per the the patient also has a sister who recently had lung cancer who . SOCIAL HISTORY: Patient currently lives with her . She does have a very remote history of tobacco use back at the age of 17 for about 1 year. Otherwise no other tobacco history noted. She also denies any alcohol or illicit drug use. REVIEW OF SYSTEMS: Twelve point review of systems has been completed negative except for what is expressed in the HPI. PHYSICAL EXAMINATION: Vital Signs: Temperature 98.8 degrees, heart rate 76, respirations 18, blood pressure 116/56, O2 saturation 100% on room air. General: This is a female lying in her hospital bed. She is overweight. Her and sister are at bedside. HEENT: Head normocephalic, atraumatic. She does have icteric sclerae noted. Pupils equal, round, reactive. Oral mucosa appears to be normal. Gross auditory acuity is intact. Cardiovascular: S1, S2 heard with no murmurs, gallops, rubs appreciated. Respiratory: Chest is clear. No rhonchi, rales or wheezing noted. Abdomen: Soft and nondistended. Some diffuse tenderness noted. Musculoskeletal: No bony abnormalities. Extremities: Some trace bilateral extremity edema noted. Neurologic: Patient is alert and oriented. She is able to ambulate without assistance. LABS AND STUDIES: CT as per the HPI. White blood cell count today is 13.20, hemoglobin 6.6, hematocrit 24.1, platelet count is 302,000. Sodium is 136, potassium 3.3, chloride 103, CO2 of 23, BUN 11, creatinine 0.5, glucose 167. Of note the patient had a calcium level of 14.1 on admission. This has been treated and her calcium is 9.6 at this time. CA is 38.3, total bilirubin is 4.23, AST is 40, ALT 70, alkaline phosphatase is 625 ASSESSMENT AND PLAN: 1. Large right upper quadrant mass of uncertain etiology. Diagnostics assessment is ongoing. She has already had an EGD which was apparently unremarkable. She has now had an abdominal MRI and general surgeries involved as well as continued involvement with gastroenterology. Tissue diagnosis would be needed in order to determine treatment. 2. Malignant hypercalcemia. This has been treated, the patient's calcium is normal. Continue to monitor. 3. Jaundice with fever which is concerning for cholangitis. She continues on broad-spectrum intravenous antibiotics per the primary team. They have done blood cultures too which have been negative. 4. Anemia, profound. The 2 units of packed red blood cells has been ordered at this time. Agree with transfusion. Continue to transfuse as needed. 5. Leukocytosis. This is likely secondary to the mass as well as possible cholangitis. Continue management as per above. 6. Iron deficiency. Patient is getting 2 units of packed red blood cells. We want to thank you for consulting us on this patient. Will continue to follow along and adjust our treatment plan per her hospital course. Dictated by HEATHER Thomas for Aminah Shankar MD cc: Aminah Shankar MD I have seen and examined the patient and the above note reflects my history, physical examination and assessment and plan. Aminah Shankar MD [facility]
[2019-01-07] MEDS: ZOSYN 2.25 GM in NS 50 ML IV SCH ×5 (00:35→21:41)
[2019-01-07] MEDS: ZANTAC 50 MG in NS 50 ML IV SCH ×3 (05:33→21:50)
[2019-01-07] MEDS: CLINIMIX E 4.25%-5% SOLUTION 1,000 ML IV SCH ×2 (05:33→13:14)
[2019-01-07] MEDS: NS 1,000 ML IV SCH (05:38)
[2019-01-07 08:07] LABS: BASO# 0.01 X1000 (0.0-0.2); BASO% 0.1 % (0.0-0.8); EOS# 0.14 X1000 (0.0-0.7); EOS% 1.3 % (0.0-10.0); HEMATOCRIT 28.2 % (37.0-47.0); HEMOGLOBIN 8.4 g/dL (12.0-16.0); IMM GRAN# 0.05 X1000 (0.0-0.04); IMM GRAN% 0.5 % (0.0-0.5); LYMPH# 1.27 X1000 (1.2-3.4); LYMPH% 11.5 % (20.5-51.1); MCH 21.6 PG (27-31); MCHC 29.8 g/dL (33-37); MCV 72.5 FL (81-99); MONO# 0.93 X1000 (0.11-0.59); MONO% 8.4 % (1.7-9.3); MPV 10.7 FL (7.4-10.4); NEUT# 8.66 X1000 (1.4-6.5); NEUT% 78.2 % (42.2-75.2); PLT 273 X1000 (130-400); RBC 3.89 XMIL (4.2-5.4); WBC 11.06 X1000 (4.8-10.8)
[2019-01-07 08:19] LABS: AGAP 9; ALB/GLOB RATIO 0.6; ALBUMIN 2.1 g/dL (3.5-5.0); ALKALINE PHOSPHATASE 652 U/L (32-104); BUN 9 mg/dL (8-22); CALCIUM 9.4 mg/dL (8.8-10.2); CHLORIDE 106 mmol/L (98-107); COSMO 278; CREATININE 0.4 mg/dL (0.5-0.9); ESTIMATED GFR > 60; GLUCOSE 169 mg/dL (70-104); GOT 42 U/L (10-30); GPT 54 U/L (10-36); POTASSIUM 3.1 mmol/L (3.5-5.1); SODIUM 138 mmol/L (136-145); TCO2 23 mmol/L (25-35); TOTAL BILIRUBIN 5.21 mg/dL (0.20-1.00); TOTAL PROTEIN 5.6 g/dL (6.3-8.3)
[2019-01-07 10:51] LABS: INR 1.1; PROTIME 15.1 Seconds (11.0-16.0)
[2019-01-07 10:52] LABS: PTT 32.6 Seconds (22.3-41.8)
[2019-01-07] MEDS: MORPHINE IV PRN (13:14)
[2019-01-07] MEDS: LIPOSYN 20% 500 ML IV SCH (13:14)
--- NOTE | 2019-01-07 13:19 | Diag Imaging Result Doc PS360 ---
EXAM: CT GUIDED BX LIVER 01/07/2019 HISTORY: RUQ mass TECHNIQUE: CT-guided biopsy of right upper quadrant mass COMMENT: The risks and benefits of the procedure including the possibility of bleeding, infection, reaction to lidocaine were discussed with the patient and she agreed to the procedure. Following sterile preparation the skin anteriorly and administration 1% lidocaine to the skin and deeper soft tissues, an 18-gauge coaxial Temno core biopsy needle was employed to obtain four cores from the lesion anteriorly. There are no immediate complications and the patient tolerated the procedure well. IMPRESSION: Successful CT-guided biopsy. Electronically signed by Goran Mccrary 01/07/2019 1:16 PM
--- NOTE | 2019-01-07 15:45 | PROGRESS NOTE ---
DATE: 01/07/2019 SUBJECTIVE: This today Ms. Stuart refers to be feeling some pain in the abdomen, but she feels a lot more stronger, however. OBJECTIVE: Vital signs: Blood pressure is 113/58, pulse of 69, respirations 23, temperature 98.0 degrees. Patient was saturating 99% on room air. General: Ms. Stuart is a 53-year-old female. She is in bed, no distress. HEENT: Mucosa is pink and moist. Positive for icterus at 2+. Chest: Good air entry bilaterally. No crepitations. Cardiovascular: Regular rate and rhythm. GI: Abdomen is soft. It is tender. In the right upper quadrant there is a palpable mass. Extremities: No pedal edema. 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 LABORATORY DATA: WBC is 11.06, hemoglobin is 8.4, platelet count of 273,000. Chemistry is reviewed. Potassium is 3.1, but otherwise unremarkable. Calcium is down to 9.4. CA 19-9 is 981. ASSESSMENT: 1. Large right upper quadrant mass of uncertain etiology. The CA 19-9 is extremely elevated which would be concerning for pancreatic origin. 2. Malignant hypercalcemia. This is improved. The patient was given a 1 time dose of Aredia. 3. Obstructive jaundice with evidence concerning for cholangitis. Patient is on broad-spectrum IV antibiotics. There is a plan for ERCP and possible stent placement by GI. We are going to be waiting on that. 4. Sepsis on presentation, improved. 5. Generalized weakness and significant weight loss concerning for underlying malignancy. We will continue with the diagnostic workup. 6. Microcytic anemia secondary to iron deficiency. Patient has been given 1 PRBC transfusion. Hemoglobin and hematocrit have improved. PLAN: So this morning Ms. Stuart underwent CT-guided biopsy of the right upper quadrant mass. We are pending the pathology report. We are also pending final recommendations from GI as to if ERCP will be done today or tomorrow. For now, patient's calcium has normalized. We will discontinue the normal saline. We will continue with the Clinimix with the lipid infusion for nutritional supplement. cc: Ariel Kaur MD [facility]
--- NOTE | 2019-01-07 18:47 | PROVIDER PROGRESS NOTE ---
Progress Note SUBJECTIVE: No acute overnight events. Afebrile. No vomiting, CP, SOB. OBJECTIVE: Last Vital Signs Temp 98.2 F 01/07/19 15:40 Pulse 73 01/07/19 15:40 Resp 23 01/07/19 11:10 BP 113/64 01/07/19 15:40 Pulse Ox 100 01/07/19 15:40 Height 5 ft 2 in Weight 216 lb 6 oz GEN: NAD CV: RRR PULM: CTAB SKIN: jaundiced LABS: 01/03/19 01/03/19 01/07/19 10:10 10:10 07:50 WBC 11.06 Hgb 8.4 Plt Count 273 INR 1.1 Sodium 138 Potassium 3.1 L Chloride 106 Carbon Dioxide 23 L BUN 9 Creatinine 0.4 L Total Bilirubin 5.21 H AST 42 H ALT 54 H Alkaline Phosphatase 652 H Total Protein 5.6 L Albumin 2.1 L Globulin 3.5 Carcinoembryonic Ag 38.3 H CA 19-9 Antigen 981 Dynamic MRI 01/06/2019 IMPRESSION: 1. Large mass at the gallbladder fossa. This contacts and could arise from the liver, gallbladder, and duodenum mainly. 2. Numerous gallstones in the gallbladder. Small gallstone in the distal common bile duct. There is moderate dilation of the common bile duct but not very much intrahepatic biliary dilation. 3. Indeterminate abnormal thickening of the superior gallbladder wall. 4. Splenomegaly. EGD 01/06: normal A/P: Ms. Ludy Stuart is a 53 year old woman who was admitted with nausea, vomiting, abnormal weight loss found to have large RUQ intra-abdominal mass, malignant hypercalcemia, and anemia. EGD yesterday was negative for gastric outlet obstruction or luminal etiology. CEA and Ca19-9 tumor markers are elevated. Patient underwent percutaneous CT-guided biopsy today. 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 # RUQ abdominal mass: await pathology results; oncology and surgery following # Obstructive jaundice: LFTs stable; ALP downtrending; NPO after MN for palliative stent and CBD brushings/biopsy with Dr. Roque # ROBERT: no overt bleeding; continue to trend H/H, goal hgb of 7-8 # Malignant hypercalcemia: treated with IVFs; improved # Nausea and vomiting: antiemetics prn # Cholangitis: no fever currently; on zosyn Will follow with you. Please call with questions
[2019-01-08] MEDS: ZOSYN 2.25 GM in NS 50 ML IV SCH ×4 (02:45→21:09)
[2019-01-08] MEDS: CLINIMIX E 4.25%-5% SOLUTION 1,000 ML IV SCH ×2 (03:19→16:50)
[2019-01-08] MEDS: ZANTAC 50 MG in NS 50 ML IV SCH ×3 (05:05→21:09)
[2019-01-08 08:03] LABS: EOS# 0.16 X1000 (0.0-0.7); EOS% 1.5 % (0.0-10.0); HEMATOCRIT 27.5 % (37.0-47.0); HEMOGLOBIN 8.1 g/dL (12.0-16.0); IMM GRAN# 0.05 X1000 (0.0-0.04); IMM GRAN% 0.5 % (0.0-0.5); LYMPH# 1.13 X1000 (1.2-3.4); LYMPH% 10.6 % (20.5-51.1); MCH 21.6 PG (27-31); MCHC 29.5 g/dL (33-37); MCV 73.3 FL (81-99); MONO# 0.93 X1000 (0.11-0.59); MONO% 8.7 % (1.7-9.3); MPV 11.7 FL (7.4-10.4); NEUT# 8.44 X1000 (1.4-6.5); NEUT% 78.7 % (42.2-75.2); PLT 288 X1000 (130-400); RBC 3.75 XMIL (4.2-5.4); RDW 26.2 % (11.5-14.5); WBC 10.71 X1000 (4.8-10.8)
[2019-01-08 08:11] LABS: AGAP 10; ALB/GLOB RATIO 0.6; ALBUMIN 2.3 g/dL (3.5-5.0); ALKALINE PHOSPHATASE 750 U/L (32-104); BUN 8 mg/dL (8-22); CALCIUM 9.9 mg/dL (8.8-10.2); CHLORIDE 105 mmol/L (98-107); COSMO 279; CREATININE 0.4 mg/dL (0.5-0.9); ESTIMATED GFR > 60; GLUCOSE 154 mg/dL (70-104); GOT 53 U/L (10-30); GPT 54 U/L (10-36); POTASSIUM 3.1 mmol/L (3.5-5.1); SODIUM 139 mmol/L (136-145); TCO2 24 mmol/L (25-35); TOTAL PROTEIN 5.9 g/dL (6.3-8.3)
[2019-01-08] MEDS ORDERED: MIRALAX PO SCH (09:00)
[2019-01-08] MEDS: MIRALAX PO SCH ×2 (09:49→21:09)
[2019-01-08] MEDS: DULCOLAX PR SCH ×2 (09:49→21:09)
--- NOTE | 2019-01-08 14:20 | GASTROENTEROLOGY PROGRESS NOTE ---
DATE: 01/08/2019 SUBJECTIVE: Resting in bed. I spoke to the patient and at bedside. The patient complains of constipation. She has not had a bowel for the last 2 weeks with abdominal discomfort in the epigastric region and right upper quadrant. She denies any nausea or vomiting. OBJECTIVE: Vital signs: Temperature 98.7 degrees, pulse of 71, respiratory rate 16, blood pressure 122/53, saturating 99% on room air. Body weight of 216 pounds 6 ounces. BMI of 39.6 kg. General: Obese, lying in bed, in no acute distress. HEENT: HEENT pale conjunctivae. Icteric sclerae. Neck: Supple. Abdomen: Protuberant with discomfort in the right upper quadrant, with no rebound or guarding. Extremities: Extremities no cyanosis, clubbing. Neurologic: Neurologic is alert, awake, oriented x3. LABS: Hemoglobin and hematocrit is 8.1 and 27.5. White count of 10.7, platelet count of 288,000. Sodium 139, potassium 3.1, chloride 105, bicarb 24, anion gap 10, BUN of 8, creatinine 0.4, glucose of 154, calcium is 9.9, total bilirubin is 5.4, AST 53, ALT 54, alkaline phosphatase 750, total protein is 5.9, albumin of 2.3. INR 1.1 PT 15.1, PTT of 32.6. Blood culture x2 negative at 48 hours from 01/03/2019. IMPRESSION/PLAN: 1. Right upper quadrant abdominal mass. She had a CT guided biopsy done. We will follow up the results of the pathology. I spoke with Dr. Sandhu. He is also waiting results of pathology and depending on that he will decide about further management. 2. Obstructive jaundice. She has a common bile duct stone. I have discussed the case with Dr. Roque and he plans to ERCP tomorrow. We will keep the patient on clear liquid diet today. Will make her NPO past midnight for ERCP tomorrow Dr. Roque. She will continue IV antibiotics. 3. Iron-deficient anemia continue follow and transfuse as needed. 4. Malignant hypercalcemia treated with IV fluids. Continue to watch per the primary team. 5. Elevated CEA and CA-19-9. Continue workup per the primary care team. She may benefit from Oncology consultation. 6. Nausea and vomiting. Continue IV antiemetics. 7. Constipation. We will start on MiraLAX 17 g p.o. b.i.d. and Dulcolax 10 mg per rectal b.i.d. 8. The procedure of ERCP will be scheduled for tomorrow with Dr. Roque. The risks, benefits, indications, and alternatives were discussed with the patient and family at bedside. All questions answered. 9. Gastrointestinal prophylaxis with ranitidine 50 mg IV q.8 hours. 10. Malnutrition she will continue on total parenteral nutrition. she has poor oral intake. 11. Further recommendations pending the hospital course. The above plan was discussed with the patient and family and all questions answered. Please call us with any further questions. cc: Reagan Roque MD MTDD
[2019-01-08] MEDS: LIPOSYN 20% 500 ML IV SCH (16:54)
--- NOTE | 2019-01-08 17:27 | PROGRESS NOTE ---
DATE: 01/08/2019 SUBJECTIVE: Today Ms. Stuart refers to be feeling pretty much the same. She had a biopsy of the mass done yesterday and she is pending possible ERCP tomorrow. OBJECTIVE: Vital signs: Blood pressure is 102/63, pulse of 88, respirations 20, temperature 98.0 degrees. Patient is saturating 99% on room air. General: Ms. Stuart is a 53-year-old female. She was in the bed, no distress. HEENT: Mucosa is pink and moist. Positive icterus. Chest: Clear to auscultation. Cardiovascular: Regular rate and rhythm. GI: Abdomen is soft. Minimally tender in the right upper quadrant. There is a palpable mass. Extremities: No pedal edema. 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 LABORATORY DATA: Has been reviewed. WBC is 10.71, hemoglobin is 8.1, platelet count of 288,000. Chemistry is also reviewed. Potassium is 3.1. Liver enzymes have been reviewed, fairly stable with mild tendency to be creeping up. ASSESSMENT: 1. Right upper quadrant mass of uncertain etiology. CA-19-9 is extremely elevated which is concerning for pancreatic origin. The patient is status post FNA. We are pending the result. 2. Malignant hypercalcemia, resolved. 3. Obstructive jaundice with evidence concerning for cholangitis. The patient is on broad- spectrum antibiotics. So far blood cultures have been negative. ERCP is planned hopefully for tomorrow. 4. Sepsis on presentation, improved. 5. Microcytic anemia secondary to iron deficiency. The patient is status post 1 PRBC transfusion. We think iron has been replaced. Hemoglobin hematocrit are also fairly stable. 6. Generalized weakness and significant weight loss. Presumed to be due to the underlying malignancy. PLAN: So in general, Ms. Stuart is clinically stable but continues to be jaundice. She has been afebrile. She is still on IV antibiotics. Blood cultures have been negative for 48 hours. We are going to continue with the current management. We are pending the FNA results and we are also pending GI for ERCP tomorrow. cc: Ariel Kaur MD
--- NOTE | 2019-01-08 20:17 | HEMO/ONC PROGRESS NOTE ---
DATE: 01/08/2019 SUBJECTIVE: Ms. Stuart is in her hospital room. She is in no acute distress. OBJECTIVE: Vital signs: Temperature 98.0 degrees, heart rate 88, respirations 20, blood pressure 102/63, O2 saturation 96% on room air. Cardiovascular: Regular rate. Respiratory: Normal respiratory effort with no wheezing noted. Gastrointestinal: Abdomen is nondistended. Musculoskeletal: No bony abnormalities. Neurologic: Patient is alert and oriented. LABS AND STUDIES: White blood cells today are 10.71, hemoglobin 8.1, hematocrit is 27.5, platelet count is 288,000, sodium 139, potassium 3.1, chloride 105, CO2 24, BUN 8, creatinine 0.4 and glucose is 154. Total bilirubin is 5.40 today with an AST and ALT of 53 and 54 respectively and alkaline phosphatase of 750. ASSESSMENT AND PLAN: 1. Right upper quadrant mass of undetermined etiology at this point. She does have a rather elevated CA19-9 of 981. She had a CT-guided liver biopsy yesterday, and path is currently still pending. The plan is to do an ERCP tomorrow. This is to relieve her biliary obstruction. Plan is also for the patient to be referred down to [facility] to see Dr. Winn to see if resection is an option. We will follow up on all results and plan to see the patient once she is out of the hospital. 2. Malignant hypercalcemia. This is resolved. 3. Obstructive jaundice with possible cholangitis. Patient is on broad-spectrum IV antibiotics. She is down for ERCP as per above. Gastroenterology is following closely. 4. Sepsis on presentation. This is essentially resolved. 5. Generalized weakness. Likely related to her underlying malignancy. 6. Anemia. Patient is status post a unit of packed red blood cells. We will continue to monitor and transfuse as needed. Dictated by HEATHER Thomas for Aminah Shankar MD cc: Aminah Shankar MD I have seen and examined the patient. The above note reflects my history, physical, assessment and plan. Aminah Shankar MD MTDTyrel
[2019-01-09] MEDS: ZOSYN 2.25 GM in NS 50 ML IV SCH ×4 (02:03→20:05)
[2019-01-09] MEDS: ZANTAC 50 MG in NS 50 ML IV SCH ×3 (04:34→20:05)
[2019-01-09] MEDS: CLINIMIX E 4.25%-5% SOLUTION 1,000 ML IV SCH ×2 (05:26→20:05)
[2019-01-09] MEDS ORDERED: ROBINUL ONE (07:05)
[2019-01-09] MEDS ORDERED: XYLOCAINE-MPF 2% ONE (07:05)
[2019-01-09] MEDS ORDERED: DIPRIVAN 1% ONE ×4 (07:06→09:55)
[2019-01-09] MEDS ORDERED: FENTANYL ONE (07:07)
[2019-01-09] MEDS ORDERED: ZOFRAN ONE (09:04)
[2019-01-09] MEDS ORDERED: STERILE WATER INJ. ONE (09:27)
[2019-01-09] MEDS ORDERED: GLUCAGON ONE (09:27)
--- NOTE | 2019-01-09 10:27 | Diag Imaging Result Doc PS360 ---
EXAM: ERCP-BILIARY AND PANCREATIC 01/09/2019 HISTORY: cbd stones TECHNIQUE: ERCP five images COMMENT: There is filling defect in the common hepatic and common bile ducts mostly in the mid duct region which were apparently removed by Dr. Cadena with a stone basket. Some of this was evidently clot. A stent was placed at the end of the procedure. The last image demonstrates some retained filling defects in the upper portion of the duct. IMPRESSION: Stones, debris and blood clots in the common hepatic and common bile ducts, partially removed and stent placement. Electronically signed by Goran Mccrary 01/09/2019 10:25 AM
[2019-01-09] MEDS: DULCOLAX PR SCH ×2 (10:40→21:36)
[2019-01-09] MEDS: MIRALAX PO SCH ×2 (10:41→21:36)
[2019-01-09] MEDS: MORPHINE IV PRN (10:53)
[2019-01-09] MEDS: PHENERGAN IV PRN (11:06)
[2019-01-09] MEDS: SODIUM CHLORIDE 0.9% INJ PRN (11:06)
--- NOTE | 2019-01-09 13:44 | OPERATIVE NOTE ---
PROCEDURE DATE : 01/09/2019 PROCEDURES: 1. Endoscopic retrograde cholangiopancreatography. 2. Endoscopic sphincterotomy. 3. Stone removal with a stent. 4. Low iron. 5. Stent placement. PREOPERATIVE DIAGNOSIS: Biliary stone. POSTOPERATIVE DIAGNOSIS: Solitary large stone in the common bile duct. Blood clots in the bile duct appear to be recent. These were also removed. SURGEON: Reagan Roque MD DESCRIPTION OF PROCEDURE: After informed consent and adequate intravenous sedation, the scope was introduced through the esophagus, stomach, and duodenum. The periampullary diverticula were small. Pancreatogram was completely normal. Cholangiogram reveals dilated common bile duct and hepatic ducts as well as a filling defect. One appears to be a stone and the other on basket sweep was found to be blood clots. These may be related to liver biopsy or spontaneous hemorrhage. The duct was completely cleaned. At this point, a 10 [place] 7 cm stent was deployed. The scope was withdrawn. The patient tolerated the procedure well without any immediate complications. cc: MD Reagan Pérez MD
[2019-01-09] MEDS: LIPOSYN 20% 500 ML IV SCH (15:21)
--- NOTE | 2019-01-09 19:50 | PROGRESS NOTE ---
DATE: 01/09/2019 SUBJECTIVE: This morning, Ms. Stuart was crying. She was hurting after she had an ERCP done. OBJECTIVE: Vital Signs: Blood pressure is 108/58, pulse of 73, respirations 18, temperature 97.8 degrees. General: Ms. Stuart is a 53-year-old female. She is in bed. She was in some painful distress. HEENT: Mucosa is pink and moist. Slightly icteric. Chest: Good air entry bilaterally. No crepitations. No rhonchi. Cardiovascular: Regular rate and rhythm. Abdomen: Soft, tender to palpation to the right flank. 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 Extremities: No pedal edema. LABORATORY DATA: None for today. ASSESSMENT: 1. Right upper quadrant mass of uncertain etiology. Patient is status post fine needle aspiration. We are still pending the result. I have called Pathology and preliminary result seems to suggest that there are some clear cell components which will be concerning for renal cell carcinoma; however, we are still waiting for the stains and official report. 2. Malignant hypercalcemia. This has resolved. 3. Obstructive jaundice, with evidence concerning for cholangitis. The patient has been started on broad-spectrum antibiotics. Endoscopic retrograde cholangiopancreatography was done today. The report has been reviewed. A stent has been deployed. 4. Sepsis on presentation, resolved. 5. Microcytic anemia, secondary to iron deficiency. The patient has been transfused 1 packed red blood cells. 6. Generalized weakness with significant weight loss, concerning for underlying malignancy. In general, Ms. Stuart is stable. She was in some pain this morning after the procedure. We are going to continue with the current antimicrobial coverage and await for the pathology report. It appears that the endoscopic retrograde cholangiopancreatography did suggest a large stone in the common bile duct, which was removed and a stent was deployed. cc: Ariel Kaur MD MTDD
[2019-01-10] MEDS: ZOSYN 2.25 GM in NS 50 ML IV SCH ×4 (02:44→19:43)
[2019-01-10] MEDS: TYLENOL PO PRN (06:32)
[2019-01-10 08:09] LABS: BASO# 0.02 X1000 (0.0-0.2); BASO% 0.2 % (0.0-0.8); EOS# 0.26 X1000 (0.0-0.7); HEMATOCRIT 27.9 % (37.0-47.0); HEMOGLOBIN 8.1 g/dL (12.0-16.0); IMM GRAN# 0.11 X1000 (0.0-0.04); IMM GRAN% 0.8 % (0.0-0.5); MCH 21.5 PG (27-31); MONO# 1.16 X1000 (0.11-0.59); MONO% 8.7 % (1.7-9.3); MPV 11.2 FL (7.4-10.4); NEUT# 10.53 X1000 (1.4-6.5); NEUT% 79.3 % (42.2-75.2); PLT 306 X1000 (130-400); RBC 3.77 XMIL (4.2-5.4); RDW 26.4 % (11.5-14.5); WBC 13.28 X1000 (4.8-10.8)
[2019-01-10 08:35] LABS: AGAP 12; ALB/GLOB RATIO 0.7; ALBUMIN 2.3 g/dL (3.5-5.0); ALKALINE PHOSPHATASE 920 U/L (32-104); BUN 9 mg/dL (8-22); CHLORIDE 101 mmol/L (98-107); COSMO 277; CREATININE 0.4 mg/dL (0.5-0.9); ESTIMATED GFR > 60; GLUCOSE 183 mg/dL (70-104); GOT 143 U/L (10-30); GPT 109 U/L (10-36); MAGNESIUM 2.2 mg/dL (1.5-2.7); PHOSPHORUS 1.6 mg/dL (2.7-4.5); POTASSIUM 3.4 mmol/L (3.5-5.1); SODIUM 137 mmol/L (136-145); TCO2 24 mmol/L (25-35); TOTAL BILIRUBIN 7.21 mg/dL (0.20-1.00); TOTAL PROTEIN 5.6 g/dL (6.3-8.3)
[2019-01-10] MEDS: MIRALAX PO SCH ×2 (08:35→22:26)
[2019-01-10] MEDS: ZANTAC 50 MG in NS 50 ML IV SCH ×3 (08:36→23:40)
[2019-01-10] MEDS: DULCOLAX PR SCH ×2 (08:37→22:26)
[2019-01-10] MEDS: CLINIMIX E 4.25%-5% SOLUTION 1,000 ML IV SCH ×2 (12:25→23:41)
--- NOTE | 2019-01-10 15:02 | PROGRESS NOTE ---
DATE: 01/10/2019 SUBJECTIVE: This morning Ms. Stuart refers to be doing a little better. She is not in that much of pain as yesterday. OBJECTIVE: Vital signs: Blood pressure 107/55, pulse of 66, respirations 18, and temperature 97.7 degrees. Patient is saturating 99% on room air. General: Ms. Stuart is a 53-year-old female. She is in bed in no distress. Mucosa is pink. Still icteric. Neck: Supple. Chest: Clear to auscultation. No crepitations. No rhonchi. Cardiovascular: Regular rate and rhythm. Abdomen: Soft and distended. There is palpable right flank to upper quadrant mass. Patient is awake, alert, and oriented. LABORATORY DATA: WBC is 13.38, hemoglobin is 8.1, platelet count of 306,000. Chemistry is also reviewed. Total bilirubin is up to 7.21, AST is 143, ALT is 109, alkaline phosphatase is 920. ASSESSMENT: 1. Obstructive jaundice with ascending cholangitis. Patient is status post ERCP with stone removal and stent placement. 2. Sepsis secondary to cholangitis improved. 3. Right upper quadrant mass of uncertain etiology. Biopsy reveals that it is malignant and it has some clear cell features, which would be concerning for renal. We are however awaiting for the immunohistochemical stains. 4. Malignant hypercalcemia resolved. 5. Iron deficiency anemia stable. 6. Generalized weakness and weight loss due to underlying malignancy. PLAN: In general, Ms. Stuart refers to be doing fairly okay. Her liver enzymes are slightly elevated. I am not sure if it is all because of the ERCP that was done yesterday, and we are going to keep an eye on this. Clinically, she is not febrile, and she is not hurting. The preliminary pathology report has been reviewed, and I have communicated that to the patient and her family members. We also waiting the immuno histo chemical stains. Depending on the results, we will follow up with further recommendations from the subspecialties involved. cc: Ariel Kaur MD MTDD
[2019-01-10] MEDS: LIPOSYN 20% 500 ML IV SCH (15:05)
--- NOTE | 2019-01-10 21:19 | GASTROENTEROLOGY PROGRESS NOTE ---
DATE: 01/10/2019 SUBJECTIVE: The patient is resting in bed. She complains of discomfort in the right upper quadrant. She had a liver biopsy done. The final report is currently pending. She had an ERCP done yesterday by Dr. Roque. A CBD stone was removed, and she had a stent placed. OBJECTIVE/PHYSICAL EXAMINATION: Vital signs: Temperature 97.7, pulse of 66, respiratory rate 20, blood pressure 107/55, saturating 90% on room air. Body weight of 216 pounds 6 ounces. BMI of 39.6 kg/m2. General: Lying in bed in no acute distress. HEENT: Pale conjunctivae. Icteric sclerae. Neck: Supple. Abdomen: Discomfort in the right upper quadrant. No rebound. Extremities: No cyanosis or clubbing. Neurologic: She is awake, alert, oriented. LABS: Hemoglobin and hematocrit are 8.1 and 27.9. White count of 13.2, platelet count 306. Sodium 139, potassium 3.4, chloride 101, bicarb 24, anion gap 12, BUN of 9, creatinine 0.4, glucose of 183, calcium 10. Phosphorus is 1.6, magnesium 2.2. Total bilirubin 7.21. AST 143, ALT 109, alkaline phosphatase 920. Total protein 5.6, albumin of 2.3. Blood cultures x2 were negative from 01/03/2019. IMPRESSION AND PLAN: 1. Obstructive jaundice with ascending cholangitis. She is status post endoscopic retrograde cholangiopancreatography with stone removal and stent placement by Dr. Roque. She will need stent removal in 4 to 6 weeks. In that regard, she will follow up in clinic with Dr. Mojica in 4 weeks of discharge. 2. Right upper quadrant mass of uncertain etiology. Biopsy reveals clear cells, but the final report is currently pending. She is being followed by Dr. Aminah Shankar. 3. Sepsis, improving. She is on antibiotics. 4. Malignant hypercalcemia, resolved. 5. Iron-deficient anemia, stable. Continue to watch for now. Transfuse as needed. 6. Deconditioning. Aware. She will need to work with physical therapy. This is being managed by the primary team. 7. Malnutrition. She is on total parenteral nutrition. 8. Bowel regimen with MiraLAX twice daily and Dulcolax twice a week. 9. Gastrointestinal prophylaxis with PPI. 10. The above plan was discussed with the patient, and all questions answered. Please call us with any further questions. cc: MD Ariel Zepeda MD MTDD
[2019-01-11] MEDS: ZOSYN 2.25 GM in NS 50 ML IV SCH ×4 (02:35→20:25)
[2019-01-11 07:55] LABS: BASO# 0.03 X1000 (0.0-0.2); BASO% 0.2 % (0.0-0.8); EOS# 0.18 X1000 (0.0-0.7); EOS% 1.4 % (0.0-10.0); HEMATOCRIT 28.1 % (37.0-47.0); HEMOGLOBIN 8.4 g/dL (12.0-16.0); IMM GRAN# 0.22 X1000 (0.0-0.04); IMM GRAN% 1.7 % (0.0-0.5); LYMPH# 1.28 X1000 (1.2-3.4); LYMPH% 9.9 % (20.5-51.1); MCH 22.8 PG (27-31); MCHC 29.9 g/dL (33-37); MCV 76.2 FL (81-99); MONO# 1.22 X1000 (0.11-0.59); MONO% 9.4 % (1.7-9.3); MPV 11.4 FL (7.4-10.4); NEUT# 10.03 X1000 (1.4-6.5); NEUT% 77.4 % (42.2-75.2); PLT 299 X1000 (130-400); RBC 3.69 XMIL (4.2-5.4); RDW 26.3 % (11.5-14.5); WBC 12.96 X1000 (4.8-10.8)
[2019-01-11 08:19] LABS: AGAP 9; ALB/GLOB RATIO 0.6; ALBUMIN 2.1 g/dL (3.5-5.0); ALKALINE PHOSPHATASE 767 U/L (32-104); BUN 8 mg/dL (8-22); CALCIUM 9.8 mg/dL (8.8-10.2); CHLORIDE 102 mmol/L (98-107); COSMO 272; CREATININE 0.3 mg/dL (0.5-0.9); ESTIMATED GFR > 60; GLUCOSE 168 mg/dL (70-104); GOT 34 U/L (10-30); GPT 69 U/L (10-36); POTASSIUM 3.7 mmol/L (3.5-5.1); SODIUM 135 mmol/L (136-145); TCO2 24 mmol/L (25-35); TOTAL BILIRUBIN 4.42 mg/dL (0.20-1.00); TOTAL PROTEIN 5.7 g/dL (6.3-8.3)
[2019-01-11] MEDS: ZANTAC 50 MG in NS 50 ML IV SCH ×3 (09:04→23:19)
[2019-01-11] MEDS: PHENERGAN IV PRN (09:05)
[2019-01-11] MEDS: MIRALAX PO SCH ×2 (09:05→20:25)
[2019-01-11] MEDS: DULCOLAX PR SCH ×2 (09:05→20:24)
--- NOTE | 2019-01-11 13:30 | PROGRESS NOTE ---
DATE: 01/11/2019 SUBJECTIVE: This morning Ms. Stuart refers to be doing fairly okay. She did have some swelling over the right forearm where an IV access used to be. OBJECTIVE: Vital signs: Blood pressure is 124/57, pulse of 74, respirations of 18, temperature 98.6 degrees. General Exam: Ms. Stuart is a 53-year-old female. She is in bed. No distress. HEENT: Mucosa is pink and moist, slightly icteric. Neck: Supple. Chest: Clear to auscultation. No crepitations. No rhonchi. Cardiovascular: Regular rate and rhythm. No murmurs, no rubs, no gallops. Gastrointestinal: Abdomen Is soft, still distended. There is a palpable mass in the right upper quadrant. Central nervous system: Patient is awake, alert, and oriented. LABORATORY DATA: WBC is 12.96, hemoglobin is 8.4, platelet count of 299,000. Chemistry is also reviewed. Potassium is 3.7. Liver enzymes seem to be trending down. MEDICATIONS: Patient's current medications have all been reviewed. Still on Zosyn. Today is day 8. Plan to treat for a total of 10 to 14 days. ASSESSMENT: 1. Obstructive jaundice with ascending cholangitis. Patient is status post ERCP, stone removal and stent placement. So far, blood cultures have been negative. She is on Zosyn. We plan to treat for a total of 10 to 14 days. Today is day 8 on antimicrobial therapy. 2. Sepsis on presentation secondary to cholangitis, improved. 3. Right upper quadrant mass of uncertain etiology. Biopsy preliminary report shows that it is a malignant mass with clear cell features, which would be concerning for renal etiology. We are still awaiting the immunohistochemical stains. 4. 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 5. Iron deficiency anemia. The patient is on supplement. 6. Generalized weakness and weight loss secondary to underlying malignancy. 7. Mild phlebitis on the forearm where IV access used to be. Access has been removed. PLAN: In general, Ms. Stuart is fairly stable. We are still waiting on the official and final report on the pathology, the FNA results, and also waiting on the other subspecialties tomorrow so would all have a common plan as to where to head toward. There has been some discussions with the patient of trying to get Ms. Stuart to higher level of care. I would wait for GI, Surgery and Hem/Onc final recommendations. cc: Ariel Kaur MD
[2019-01-11] MEDS: CLINIMIX E 4.25%-5% SOLUTION 1,000 ML IV SCH (14:05)
[2019-01-11] MEDS: LIPOSYN 20% 500 ML IV SCH (14:48)
[2019-01-11] MEDS: TYLENOL PO PRN (14:56)
--- NOTE | 2019-01-11 18:04 | GASTROENTEROLOGY PROGRESS NOTE ---
DATE: 01/11/2019 SUBJECTIVE: She is resting in bed. The patient is complaining of abdominal pain in the right upper quadrant. She denies any fevers, rigors, chills. Her jaundice is coming down. On evaluation of her records, she did have some low-grade temperature of 100 degrees Fahrenheit at noontime. OBJECTIVE: Current vital signs: Temperature 99.6 degrees, pulse of 87, respiratory rate of 19, blood pressure 127/55, saturating 94% on room air, body weight of 216 pounds 6 ounces, BMI 39.6 kg. General: The patient is obese, lying in bed in no acute distress. HEENT: Pale conjunctivae. Icteric sclerae. Neck: Supple. Abdomen: Discomfort in the right upper quadrant. No rebound or guarding. Extremities: No cyanosis or clubbing. Neurological: Alert, awake and oriented. LABORATORY DATA: Hemoglobin and hematocrit is 8.4 and 28.1, white count of 12.96, platelet count of 299,000. Sodium 135, potassium 3.7, chloride 102, bicarbonate 24, anion gap 9, BUN of 8, creatinine 0.2, glucose of 168, calcium is 9.8. Total bilirubin 4.4, AST 34, ALT 69, alkaline phosphatase 767, total protein 5.2, albumin of 2.1. Blood culture x2 negative after 5 days from 01/02/2019. IMPRESSION AND PLAN: 1. Obstructive jaundice with ascending cholangitis. She is status post ERCP, stone removal and stent placement by Dr. Roque. She will follow with Dr. Roque in 4 weeks of discharge to plan for ERCP with stent removal. She will continue on antibiotics per the primary team. 2. Sepsis, which is improving. 3. Right upper quadrant mass of uncertain etiology. Preliminary biopsy shows malignant mass with clear cell features. Final report is awaited. She is being followed Dr. Aminah Shankar. 4. Malignant hypercalcemia on admission, which is resolved. 5. Iron deficiency anemia. She is on iron supplementation. 6. Deconditioning. She will benefit from physical therapy. 7. We will advance her diet to full liquid diet and evaluate the response. She will continue on TPN for the time being until nutrition is optimized. 8. Pain control. IV morphine as needed. 9. Bowel regimen. Dulcolax and MiraLAX. The above plans were discussed with the patient, and all questions were answered. Please call us with any further questions. cc: MD Ariel Zepeda MD
[2019-01-12] MEDS: ZOSYN 2.25 GM in NS 50 ML IV SCH ×4 (02:21→21:27)
[2019-01-12] MEDS: CLINIMIX E 4.25%-5% SOLUTION 1,000 ML IV SCH ×2 (02:30→16:30)
[2019-01-12] MEDS: PHENERGAN IV PRN ×2 (03:35→19:15)
[2019-01-12 07:25] LABS: BASO# 0.02 X1000 (0.0-0.2); BASO% 0.1 % (0.0-0.8); EOS# 0.13 X1000 (0.0-0.7); EOS% 0.8 % (0.0-10.0); HEMATOCRIT 27.2 % (37.0-47.0); HEMOGLOBIN 7.7 g/dL (12.0-16.0); IMM GRAN# 0.27 X1000 (0.0-0.04); IMM GRAN% 1.7 % (0.0-0.5); LYMPH# 1.68 X1000 (1.2-3.4); LYMPH% 10.3 % (20.5-51.1); MCH 21.9 PG (27-31); MCHC 28.3 g/dL (33-37); MCV 77.5 FL (81-99); MONO# 1.74 X1000 (0.11-0.59); MONO% 10.6 % (1.7-9.3); MPV 10.9 FL (7.4-10.4); NEUT% 76.5 % (42.2-75.2); PLT 339 X1000 (130-400); RBC 3.51 XMIL (4.2-5.4); RDW 24.9 % (11.5-14.5); WBC 16.34 X1000 (4.8-10.8)
[2019-01-12 08:01] LABS: AGAP 8; ALB/GLOB RATIO 0.6; ALBUMIN 2.3 g/dL (3.5-5.0); ALKALINE PHOSPHATASE 607 U/L (32-104); BUN 8 mg/dL (8-22); CALCIUM 10.1 mg/dL (8.8-10.2); CHLORIDE 103 mmol/L (98-107); COSMO 271; CREATININE 0.4 mg/dL (0.5-0.9); ESTIMATED GFR > 60; GLUCOSE 178 mg/dL (70-104); GOT 12 U/L (10-30); GPT 45 U/L (10-36); SODIUM 134 mmol/L (136-145); TCO2 23 mmol/L (25-35); TOTAL BILIRUBIN 3.45 mg/dL (0.20-1.00); TOTAL PROTEIN 5.9 g/dL (6.3-8.3)
[2019-01-12] MEDS: TYLENOL PO PRN ×2 (08:17→19:15)
[2019-01-12] MEDS: ZANTAC 50 MG in NS 50 ML IV SCH ×2 (08:17→16:30)
[2019-01-12] MEDS: MIRALAX PO SCH ×2 (08:17→21:14)
[2019-01-12] MEDS: DULCOLAX PR SCH ×2 (08:17→21:35)
--- NOTE | 2019-01-12 09:51 | GASTROENTEROLOGY PROGRESS NOTE ---
DATE: 01/12/2019 SUBJECTIVE: Patient resting in bed. Her is at bedside. The patient complains of shortness of breath. I updated the patient's nurse about that. They will need to call the primary care team to evaluate it. She did have low-grade temperature of 99.7 degrees this morning. Yesterday her T-max was 100 degree. She denies any nausea or vomiting. She has moved her bowels. PHYSICAL EXAMINATION: Vital signs: Temperature 99.7 degrees, pulse of 86, respiratory rate 15, blood pressure 140/61, saturating 98% on room air. General Appearance: Obese, lying in bed, in no acute distress. HEENT: Pale conjunctivae. Icteric sclerae. Neck: Supple. Abdomen: Obese, discomfort in the right upper quadrant. No rebound or guarding. Extremities: No cyanosis, clubbing. Neurologic: Awake, alert and oriented. LABORATORY DATA: Hemoglobin and hematocrit is 7.7 and 27.2, white count of 16.34, platelet count of 339,000. Sodium 134, potassium 4, chloride 103, bicarb 29, BUN of 8, creatinine 0.4, glucose of 138, calcium is 10.1, total bilirubin 3.45, AST 12, ALT 45, total protein 5.9, albumin of 2.3. Blood culture x2 negative 5 days. IMPRESSION AND PLAN: 1. Right upper quadrant mass. Final pathology is currently pending. Dr. Aminah Shankar is following. 2. Obstructive jaundice status post endoscopic retrograde cholangiopancreatography with stone removal and stent placement, Dr. Roque. The patient will follow up in 4 weeks after discharge to schedule for ERCP with stent removal. 3. Sepsis secondary to possible cholangitis. This is improving. She is on antibiotics. 4. Malignant hypercalcemia on admission. This is resolved. 5. Iron deficiency anemia. She was on iron supplementation. Continue to watch her blood counts and transfuse as needed. 6. Malnutrition. She is on full liquid diet and she is continuing on TPN for now. 7. Pain control with IV morphine. Bowel regimen with Dulcolax and MiraLAX. We will follow along. The above plan of care discussed with the patient and family at bedside. All questions answered. Please call us with any further questions. cc: MD Ariel Zepeda MD MTDD
[2019-01-12] MEDS: LIPOSYN 20% 500 ML IV SCH (14:40)
--- NOTE | 2019-01-12 15:58 | PROGRESS NOTE ---
DATE: 01/12/2019 SUBJECTIVE: This morning Ms. Stuart refers to be feeling the same. No new complaints. No fever. Abdominal pain is gradually getting better. OBJECTIVE: Vital signs: Blood pressure is 121/69, pulse of 77, respirations 20, temperature 97.8 degrees. General: Ms. Stuart is a 53-year-old, obese female. She is in bed, no distress. HEENT: Mucosa is pink and slightly icteric. Chest: Good air entry bilaterally. No crepitations. No rhonchi. Cardiovascular: Regular rate and rhythm. No murmurs. No rubs. No gallops. GI: Abdomen is soft. It is distended. There is a palpable mass in the right upper quadrant. It is minimally tender. 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 There is no focal neurological deficit. LABORATORY DATA: WBC is 16.34, hemoglobin is 7.7, platelet count of 339,000. Chemistry is also reviewed. Liver function tests continue to be trending down. ASSESSMENT: 1. Obstructive jaundice with ascending cholangitis. Patient is status post ERCP, stone removal, and stent placement. Blood cultures so far have been negative. The patient is currently on IV Zosyn. We plan to treat this for a total of 14 days. 2. Sepsis on presentation secondary to cholangitis, improved. 3. Right upper quadrant mass of uncertain etiology. Preliminary biopsy report shows that this is a malignant mass with clear cell features which would be concerning for renal primary. We are still awaiting the immunohistochemical stains for final diagnosis. 4. 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 5. Iron deficiency anemia. Patient is status post transfusion. 6. Generalize weakness and weight loss secondary to underlying malignancy. PLAN: So in general, Ms. Stuart's cholangitis is better. She has been afebrile. Bilirubin is trending down. Liver enzymes are also trending down. She had a stent placed in the CBD by Dr. Roque on 01/09/2019. Ms. Stuart has been admitted to the hospital since January 03, 2019. Initially, the main focus was about the malignant hypercalcemia which has gotten better. During the workup there was a right upper mass. An FNA was done and it was positive as malignant, but we are still awaiting the histochemical stains to define the primary source. Hematology/Oncology is on board and as soon as the histochemical stains are known then they will make arrangements for possible transfer for higher level of care. The patient is also being seen by surgery, GI, and we do appreciate the input of all the subspecialties. cc: Ariel Kaur MD
[2019-01-12] MEDS: ZOFRAN IV PRN (21:27)
[2019-01-13] MEDS: ZANTAC 50 MG in NS 50 ML IV SCH ×2 (00:55→09:47)
[2019-01-13] MEDS: ZOSYN 2.25 GM in NS 50 ML IV SCH ×4 (02:02→21:23)
[2019-01-13] MEDS: PHENERGAN IV PRN (07:10)
[2019-01-13 07:18] LABS: BASO# 0.02 X1000 (0.0-0.2); BASO% 0.1 % (0.0-0.8); EOS# 0.12 X1000 (0.0-0.7); EOS% 0.8 % (0.0-10.0); HEMATOCRIT 26.9 % (37.0-47.0); HEMOGLOBIN 7.5 g/dL (12.0-16.0); IMM GRAN# 0.23 X1000 (0.0-0.04); IMM GRAN% 1.5 % (0.0-0.5); LYMPH# 1.18 X1000 (1.2-3.4); LYMPH% 7.7 % (20.5-51.1); MCH 22.1 PG (27-31); MCHC 27.9 g/dL (33-37); MCV 79.4 FL (81-99); MONO# 1.31 X1000 (0.11-0.59); MONO% 8.6 % (1.7-9.3); MPV 10.7 FL (7.4-10.4); NEUT% 81.3 % (42.2-75.2); PLT 353 X1000 (130-400); RBC 3.39 XMIL (4.2-5.4); RDW 24.3 % (11.5-14.5); WBC 15.26 X1000 (4.8-10.8)
[2019-01-13 07:42] LABS: AGAP 8; ALB/GLOB RATIO 0.7; ALBUMIN 2.5 g/dL (3.5-5.0); ALKALINE PHOSPHATASE 516 U/L (32-104); BUN 8 mg/dL (8-22); CALCIUM 10.5 mg/dL (8.8-10.2); CHLORIDE 102 mmol/L (98-107); COSMO 268; CREATININE 0.5 mg/dL (0.5-0.9); ESTIMATED GFR > 60; GLUCOSE 155 mg/dL (70-104); GOT 10 U/L (10-30); GPT 30 U/L (10-36); POTASSIUM 4.1 mmol/L (3.5-5.1); SODIUM 133 mmol/L (136-145); TCO2 23 mmol/L (25-35); TOTAL BILIRUBIN 3.36 mg/dL (0.20-1.00); TOTAL PROTEIN 6.1 g/dL (6.3-8.3)
[2019-01-13] MEDS: ZOFRAN IV PRN (08:05)
[2019-01-13] MEDS: DULCOLAX PR SCH ×2 (09:35→21:24)
[2019-01-13] MEDS: MIRALAX PO SCH ×2 (09:47→21:24)
[2019-01-13] MEDS: CLINIMIX E 4.25%-5% SOLUTION 1,000 ML IV SCH ×2 (10:44→22:12)
[2019-01-13] MEDS: TYLENOL PO PRN ×2 (14:44→21:23)
[2019-01-13] MEDS: LIPOSYN 20% 500 ML IV SCH (14:45)
--- NOTE | 2019-01-13 15:58 | PROVIDER PROGRESS NOTE ---
Progress Note SUBJECTIVE: No acute overnight events. Patient reports some NBNB emesis. No CP, rectal bleeding, melena, fever. Her abdominal pain is controlled. OBJECTIVE: Last Vital Signs Temp 99.9 F H 01/13/19 12:00 Pulse 84 01/13/19 12:00 Resp 16 01/13/19 12:00 BP 123/59 01/13/19 12:00 Pulse Ox 97 01/13/19 12:00 Height 5 ft 2 in Weight 216 lb 6 oz GEN: awake, alert, NAD HEENT: mild icterus, MMM NECK: supple, no jvd CV: RRR, no murmurs PULM: CTAB, no wheezing ABD: soft NT/ND, NABS, no rebound or guarding EXT: no cce LABS: 01/13/19 01/13/19 06:45 06:45 WBC 15.26 H Hgb 7.5 L Plt Count 353 Sodium 133 L Potassium 4.1 Chloride 102 Carbon Dioxide 23 L BUN 8 Creatinine 0.5 Glucose 155 H Total Bilirubin 3.36 H AST 10 ALT 30 Alkaline Phosphatase 516 H Total Protein 6.1 L Albumin 2.5 L Liver, core needle biopsy (prelim): - Malignant neoplasm with clear cell features. - Final diagnosis pending IHC stains and consultative opinion. A/P: Ms. Ludy Stuart is a 53 year old woman who was admitted with nausea, vomiting, abnormal weight loss found to have large RUQ intra-abdominal mass, malignant hypercalcemia, anemia, cholangitis, obstructive jaundice. EGD on presentation was unremarkable. ERCP revealed choledocholithiasis s/p sphincter otomy and stent placement. There was one solitary stone and blood clots in the bile ducts. Prelim biopsy shows malignant neoplasm with clear cell features. # Malignant RUQ mass: waiting final pathology; patient will likely be transferred to [facility] for further surgical evaluation # Cholangitis: persistent leukocytosis; been on zosyn since 01/03; consider stopping zosyn; blood cultures have been negative to date # Choledocholithiasis: LFTs downtrending; s/p sphincterotomy and stent placement; will eventually need CCY # ROBERT: no overt bleeding, trending H/H # Nausea/vomiting: antiemetics prn; switched H2RA to PO pantoprazole # Malignant hypercalcemia: improved # FEN: advance diet as tolerated; ensure with meals, on clinimix and lipids; nutrition following Will follow with you. Please call with questions
--- NOTE | 2019-01-13 22:38 | PROGRESS NOTE ---
DATE: 01/13/2019 SUBJECTIVE: Patient resting in bed. OBJECTIVE: Vital signs are as follows: Temperature 100 degrees, pulse 79, respiratory rate 16, blood pressure 119/59, oxygenation 98%. HEENT: Atraumatic, normocephalic. Cardiovascular: S1, S2. Respiratory system: Has evidence of good air entry bilaterally. Abdomen: Soft, nontender. No masses felt. Extremities: No evidence of edema. Central nervous system: No focal deficit noted. LABORATORY DATA: WBC 15.26, hematocrit is 26.9 with a platelet count of 353,000. Sodium is 130, potassium 4.1, chloride 102, bicarb 23, BUN is 8, creatinine 0.5, total bilirubin 3.35, AST 10, ALT 30. ASSESSMENT AND PLAN: 1. Malignant right upper quadrant mass. Pathology report showed evidence of a malignant neoplasm with clear cell features. Final diagnosis using stains still pending. We will await final pathology report. 2. Cholangitis. The patient has persistent leukocytosis and currently on Zosyn. 3. Choledocholithiasis status post sphincterotomy with stent placement. Liver function trending downwards. 4. Iron deficiency anemia. Follow up on hemoglobin, hematocrit. Continue iron replacement. 5. Malignant hypercalcemia. Improved. 6. Protein energy malnutrition. Continue Clinimix as well as lipids. Advance diet as tolerated. cc: Chago Michelle MD
[2019-01-14] MEDS: ZOSYN 2.25 GM in NS 50 ML IV SCH ×4 (03:38→21:12)
[2019-01-14] MEDS: PROTONIX PO SCH (06:17)
[2019-01-14] MEDS: DULCOLAX PR SCH ×2 (08:48→21:34)
[2019-01-14] MEDS: MIRALAX PO SCH ×2 (08:49→21:23)
[2019-01-14] MEDS: ZOFRAN IV PRN (08:49)
--- NOTE | 2019-01-14 11:57 | PROGRESS NOTE ---
DATE: 01/14/2019 SUBJECTIVE: The patient is resting in bed. OBJECTIVE: Vital Signs: Temperature 99.5 degrees, pulse 66, blood pressure 109/59, oxygen saturation is 98%. HEENT: Atraumatic, normocephalic. Cardiovascular System: S1, S2. Respiratory System: Has evidence of good air entry bilaterally. Abdomen: Soft, nontender. No masses felt. Extremities: No evidence of edema. Central Nervous System: No obvious focal deficit noted. ASSESSMENT AND PLAN: 1. Malignant right upper quadrant mass. Pathology report shows evidence of malignant neoplasm with clear cell features. Await final diagnosis using stains. 2. Cholangitis. The patient has persistent leukocytosis. Currently on antibiotics. 3. Choledocholithiasis, status post sphincterotomy as well as stent placement. Follow up on liver function tests. 4. Iron deficiency anemia. Continue iron replacement. Follow up on hemoglobin and hematocrit. 5. Malignant hypercalcemia. Maintain patient on intravenous fluids and follow up on calcium levels. 6. Protein calorie malnutrition. Continue Clinimix as well as lipids. Advance diet as tolerated. cc: Chago Michelle MD
[2019-01-14] MEDS: CLINIMIX E 4.25%-5% SOLUTION 1,000 ML IV SCH (13:39)
[2019-01-14] MEDS: LIPOSYN 20% 500 ML IV SCH (13:40)
[2019-01-14] MEDS: MORPHINE IV PRN (17:38)
[2019-01-14] MEDS: TYLENOL PO PRN (21:23)
--- NOTE | 2019-01-14 23:41 | PROVIDER PROGRESS NOTE ---
Progress Note SUBJECTIVE: No acute overnight events. Patient reports NBNB emesis this AM controlled with antiemetics. No fever, abdominal pain, rectal bleeding, melena. OBJECTIVE: Last Vital Signs Temp 100.9 F H 01/14/19 20:45 Pulse 89 01/14/19 20:45 Resp 16 01/13/19 16:22 BP 111/55 01/14/19 20:45 Pulse Ox 98 01/14/19 20:45 Height 5 ft 2 in Weight 216 lb 6 oz GEN: awake, alert, NAD HEENT: mild icterus, MMM NECK: supple, no jvd CV: RRR, no murmurs PULM: CTAB, no wheezing ABD: soft NT/ND, NABS, no rebound or guarding EXT: no cce LABS: no AM labs Liver, core needle biopsy (prelim): - Malignant neoplasm with clear cell features. - Final diagnosis pending IHC stains and consultative opinion. A/P: Ms. Ludy Stuart is a 53 year old woman who was admitted with nausea, vomiting, abnormal weight loss found to have large RUQ intra-abdominal mass, malignant hypercalcemia, anemia, cholangitis, and obstructive jaundice. EGD on presentation was unremarkable. ERCP revealed choledocholithiasis s/p sphincterotomy and stent placement. LFTs have been downtrending. Prelim biopsy shows malignant neoplasm with clear cell features. # Malignant RUQ mass: awaiting final pathology; patient will likely be transferred to [facility] for further surgical evaluation # Cholangitis: persistent leukocytosis; been on zosyn since 01/03; consider stopping zosyn; blood cultures have been negative to date # Choledocholithiasis: LFTs downtrending; s/p sphincterotomy and stent placement # ROBERT: no overt bleeding, trending H/H # Nausea/vomiting: antiemetics prn; continue oral PPI # Malignant hypercalcemia: resolved # FEN: advance diet as tolerated; ensure with meals, on clinimix and lipids; nutrition following Will follow with you. Please call with questions
[2019-01-15] MEDS: ZOSYN 2.25 GM in NS 50 ML IV SCH ×4 (02:27→20:53)
[2019-01-15] MEDS: CLINIMIX E 4.25%-5% SOLUTION 1,000 ML IV SCH ×2 (03:57→15:36)
[2019-01-15] MEDS: TYLENOL PO PRN ×2 (04:03→20:50)
[2019-01-15] MEDS: PROTONIX PO SCH (06:22)
[2019-01-15] MEDS: ZOFRAN IV PRN ×2 (06:29→16:58)
[2019-01-15 07:50] LABS: BASO# 0.02 X1000 (0.0-0.2); BASO% 0.1 % (0.0-0.8); EOS# 0.13 X1000 (0.0-0.7); EOS% 0.8 % (0.0-10.0); HEMATOCRIT 26.2 % (37.0-47.0); HEMOGLOBIN 7.4 g/dL (12.0-16.0); IMM GRAN# 0.11 X1000 (0.0-0.04); IMM GRAN% 0.7 % (0.0-0.5); LYMPH# 1.22 X1000 (1.2-3.4); LYMPH% 7.9 % (20.5-51.1); MCH 22.6 PG (27-31); MCHC 28.2 g/dL (33-37); MCV 80.1 FL (81-99); MONO# 1.27 X1000 (0.11-0.59); MONO% 8.2 % (1.7-9.3); MPV 10.5 FL (7.4-10.4); NEUT# 12.79 X1000 (1.4-6.5); NEUT% 82.3 % (42.2-75.2); PLT 380 X1000 (130-400); RBC 3.27 XMIL (4.2-5.4); RDW 23.6 % (11.5-14.5); WBC 15.54 X1000 (4.8-10.8)
[2019-01-15 08:29] LABS: AGAP 9; ALB/GLOB RATIO 0.7; ALBUMIN 2.5 g/dL (3.5-5.0); ALKALINE PHOSPHATASE 417 U/L (32-104); BUN 12 mg/dL (8-22); CHLORIDE 100 mmol/L (98-107); COSMO 269; CREATININE 0.5 mg/dL (0.5-0.9); ESTIMATED GFR > 60; GLUCOSE 154 mg/dL (70-104); GOT 9 U/L (10-30); GPT 16 U/L (10-36); POTASSIUM 4.3 mmol/L (3.5-5.1); SODIUM 133 mmol/L (136-145); TCO2 24 mmol/L (25-35); TOTAL BILIRUBIN 2.79 mg/dL (0.20-1.00); TOTAL PROTEIN 6.2 g/dL (6.3-8.3)
[2019-01-15] MEDS: MIRALAX PO SCH ×2 (08:42→21:06)
[2019-01-15] MEDS: DULCOLAX PR SCH ×2 (08:42→21:06)
--- NOTE | 2019-01-15 13:40 | GASTROENTEROLOGY PROGRESS NOTE ---
DATE: 01/15/2019 SUBJECTIVE: Patient resting in bed. Her is at bedside. The patient has some abdominal discomfort but she is starting to eat better. She denies any fevers, rigors, or chills. OBJECTIVE: Vital signs: Temperature 98 degrees, pulse rate 72, respiratory rate of 16, blood pressure of 106/64, saturating 100% on room air. Body weight of 216 pounds 6 ounces. BMI 39.6 kg/m2. General Appearance: Is obese, lying in bed, in no acute distress. HEENT: Pale conjunctivae. Icteric sclerae. Neck: Supple. Abdomen: Obese. Discomfort in the right upper quadrant. No rebound or guarding. Extremities: No cyanosis, clubbing. Neurologic: Alert, awake, oriented x3. LABORATORY DATA: Hemoglobin and hematocrit is 7.4 and 26.2, white count of 15.5, platelet count of 380,000. Sodium 133, potassium 4.3, chloride 100, bicarb 25, anion gap 9, BUN of 12, creatinine 0.5, glucose of 154, calcium is 12. Total bilirubin is 2.79, AST 9, ALT 16, alkaline phosphatase of 470. Total protein 6.2, albumin of 2.5. Blood culture x2 negative at 5 days. IMPRESSION AND PLAN: 1. Malignant right upper mass. Awaiting final pathology. The patient will likely be transferred to [facility] for further surgical evaluation. 2. Cholangitis status post endoscopic retrograde cholangiopancreatography with stenting. She continues on antibiotics. She will need ERCP with stent removal in 4 weeks, Dr. Roque. The patient will need to follow up in the clinic in 4 weeks of discharge. 3. Malignant hypercalcemia. Being managed primary team. 4. Nausea and vomiting. She continues on antiemetics as needed and continue oral PPIs. 5. Malnutrition. She is starting to eat better. She still continues on Clinimix and liquids. Once she reaches the desired goal of oral feeding, we can discontinue the TPN. 6. Disposition. Patient likely needs to be transferred to [facility] for further management of right upper quadrant malignant mass. This will be managed per the primary care team. Dr. Aminah Shankar is also on board. The above plans were discussed with the patient and family at bedside and all questions answered. Please call us with any further questions. cc: MD Chago Zepeda MD
[2019-01-15] MEDS: LIPOSYN 20% 500 ML IV SCH (15:36)
[2019-01-15] MEDS: MORPHINE IV PRN (15:37)
--- NOTE | 2019-01-15 16:55 | PROGRESS NOTE ---
DATE: 01/15/2019 SUBJECTIVE: Patient resting comfortably in bed. Not in any obvious distress. OBJECTIVE: Vital signs as follows: Temperature is 98 degrees, pulse 72, blood pressure 106/64, oxygen saturation is 100%.HEENT: Atraumatic, normocephalic. Cardiovascular: S1, S2. Respiratory system has evidence of good air entry bilaterally. Abdomen soft. Vague tenderness in the right upper quadrant. No masses felt. Extremities: No evidence of edema. Central nervous system: No obvious focal deficit noted. LABORATORY DATA: WBC is 15.54, hematocrit 26.2 with a platelet count of 380,000. Sodium is 133, potassium 4.3, chloride is 102, bicarbonate 24, BUN is 12, creatinine 0.5. ASSESSMENT AND PLAN: 1. Malignant right upper quadrant mass. Pathology showed evidence of malignant neoplasm with clear cell features. Awaiting final diagnosis using special stains. 2. Cholangitis. The patient does have persistent leukocytosis. Continue antibiotics. 3. Choledocholithiasis, status post sphincterotomy as well as stent placement. Continue to follow up on the patient's liver function tests. 4. Iron-deficiency anemia. Continue iron replacement. Follow up on hemoglobin and hematocrit. 5. Malignant hypercalcemia. Continue intravenous fluids and follow up on calcium level. 6. Protein-calorie malnutrition. Continue Clinimix as well as lipids. Advance diet as tolerated. 7. Deep vein thrombosis prophylaxis. Sequential compression devices. 8. Gastrointestinal prophylaxis. Proton pump inhibitor. cc: Chago Michelle MD
[2019-01-15] MEDS: NS 1,000 ML IV SCH (16:58)
[2019-01-16] MEDS: MORPHINE IV PRN (00:44)
[2019-01-16] MEDS: ZOSYN 2.25 GM in NS 50 ML IV SCH ×3 (03:55→15:40)
[2019-01-16] MEDS: CLINIMIX E 4.25%-5% SOLUTION 1,000 ML IV SCH (04:00)
[2019-01-16] MEDS: PROTONIX PO SCH (06:06)
[2019-01-16] MEDS: ZOFRAN IV PRN (06:07)
[2019-01-16 08:20] VITALS: BP 117/63
[2019-01-16 08:24] LABS: BASO# 0.02 X1000 (0.0-0.2); BASO% 0.1 % (0.0-0.8); EOS# 0.13 X1000 (0.0-0.7); HEMATOCRIT 25.9 % (37.0-47.0); HEMOGLOBIN 7.4 g/dL (12.0-16.0); IMM GRAN# 0.06 X1000 (0.0-0.04); IMM GRAN% 0.4 % (0.0-0.5); LYMPH% 7.4 % (20.5-51.1); MCH 22.8 PG (27-31); MCHC 28.6 g/dL (33-37); MCV 79.9 FL (81-99); MONO# 1.01 X1000 (0.11-0.59); MONO% 7.5 % (1.7-9.3); MPV 10.4 FL (7.4-10.4); NEUT# 11.26 X1000 (1.4-6.5); NEUT% 83.6 % (42.2-75.2); PLT 374 X1000 (130-400); RBC 3.24 XMIL (4.2-5.4); RDW 23.3 % (11.5-14.5); WBC 13.48 X1000 (4.8-10.8)
[2019-01-16 08:36] LABS: AGAP 7; BUN 12 mg/dL (8-22); CHLORIDE 102 mmol/L (98-107); COSMO 270; GLUCOSE 164 mg/dL (70-104); POTASSIUM 4.3 mmol/L (3.5-5.1); SODIUM 133 mmol/L (136-145); TCO2 24 mmol/L (25-35)
[2019-01-16 08:37] LABS: ALB/GLOB RATIO 0.7; ALBUMIN 2.5 g/dL (3.5-5.0); ALKALINE PHOSPHATASE 370 U/L (32-104); CREATININE 0.5 mg/dL (0.5-0.9); ESTIMATED GFR > 60; GOT 8 U/L (10-30); GPT 13 U/L (10-36); TOTAL BILIRUBIN 2.38 mg/dL (0.20-1.00)
[2019-01-16] MEDS: DULCOLAX PR SCH ×2 (08:49→09:01)
[2019-01-16] MEDS: MIRALAX PO SCH (08:49)
[2019-01-16] MEDS: NS 1,000 ML IV SCH (08:50)
--- NOTE | 2019-01-16 10:16 | PROVIDER PROGRESS NOTE ---
Progress Note SUBJECTIVE: No acute overnight events. Afebrile. No N/V/F, CP, SOB, abdominal. Tolerating solid foods. OBJECTIVE: Last Vital Signs Temp 98.7 F 01/16/19 08:19 Pulse 74 01/16/19 08:19 Resp 16 01/16/19 08:19 BP 117/63 01/16/19 08:19 Pulse Ox 96 01/16/19 08:19 Height 5 ft 2 in Weight 216 lb 6 oz GEN: awake, alert, NAD HEENT: mild icterus, MMM NECK: supple, no jvd CV: RRR, no murmurs PULM: CTAB, no wheezing ABD: soft NT/ND, NABS, no rebound or guarding EXT: no cce LABS: 01/13/19 01/16/19 01/16/19 06:45 07:30 07:30 WBC 13.48 H Hgb 7.4 L Plt Count 353 374 Sodium 133 L Potassium 4.3 Chloride 102 Carbon Dioxide 24 L BUN 12 Creatinine 0.5 Glucose 164 H Total Bilirubin 2.38 H AST 8 L ALT 13 Alkaline Phosphatase 370 H Total Protein 6.0 L Albumin 2.5 L A/P: Ms. Ludy Stuart is a 53 year old woman who was admitted with nausea, vomiting, abnormal weight loss found to have large RUQ intra-abdominal mass, malignant hypercalcemia, anemia, cholangitis, and obstructive jaundice. EGD on presentation was unremarkable. ERCP revealed choledocholithiasis s/p sphincterotomy and stent placement. LFTs have been downtrending. Prelim biopsy shows malignant neoplasm with clear cell features. She is tolerating diet. # Malignant RUQ mass: awaiting final pathology; patient will likely be transferred to [facility] for further surgical evaluation # Cholangitis: resolved; leukocytosis downtrending; been on zosyn since 01/03; consider stopping zosyn as patient has had adequate abx course for cholangitis; blood cultures have been negative to date # Choledocholithiasis: LFTs downtrending; s/p sphincterotomy and stent placement; will need to be removed 4-6 weeks from placement date # Constipation: on bowel regimen # ROBERT: no overt bleeding, trending H/H # Nausea/vomiting: antiemetics prn; continue oral PPI # Malignant hypercalcemia: resolved # FEN: tolerating diet. Will stop clinimix and lipids Will sign off. Please call with questions
--- NOTE | 2019-01-17 06:14 | DISCHARGE SUMMARY ---
ADMISSION DATE: 01/03/2019 DISCHARGE DATE: 01/16/2019 PRINCIPAL DISCHARGE DIAGNOSIS: 1. Hepatocellular carcinoma. SECONDARY DIAGNOSES: 1. Cholangitis, choledocholithiasis status post sphincterotomy as well as a stent placement. 2. Iron deficiency anemia. 3. Malignant hypercalcemia. 4. Protein calorie nutrition. DISCHARGE MEDICATIONS: Oxycodone 5 mg every 8 hours p.r.n., Phenergan 25 mg every 8 hours p.r.n., Augmentin 875 mg p.o. twice a day for 10 days. CONSULTATIONS DONE DURING HOSPITAL STAY: 1. Dr. Fan, Hematology/Oncology. 2. Dr. Roque, Gastroenterology. 3. Dr. Lavelle Sandhu, Surgery. PROCEDURES DONE DURING THIS HOSPITAL STAY: 1. Pelvis abdominal CT scan, 01/03/2019. 2. Head CT, 01/04/2019. 3. ERCP/sphincterotomy/stent placement, 01/09/2019. HOSPITAL COURSE: Ms. Ludy Stuart is a 53-year-old female and she was diagnosed as having a right upper quadrant mass at time of presentation. In addition, her calcium level was noted to be high. She had a CT-guided biopsy of the mass done on 01/07/2019, with pathology positive for hepatocellular carcinoma. At the time of her presentation, there was concern for infection, including UTI as well as cholangitis. The patient was placed on antibiotics. She was seen by the GI team. She did have a upper GI endoscopy, and also had an ERCP with sphincterotomy, and also stone removal with stent placement. She was maintained on intravenous fluids for her raised calcium levels. At this time, patient has done well, she is stable. She can now be discharged home. She will need to follow up with Oncology in the outpatient for hepatocellular carcinoma. She is expected to take her discharge medications as noted above. She was to follow up with her primary care physician. cc: Chago Michelle MD
== END 2019-01-16 15:58 | disposition home or self-care (01) | DRG 435 ==
LOC: P.ED 09:19 → SUATTDRO 09:20 → 3N 09:20
PROVIDERS: ATTEND Internal Medicine
PROC: EN.ERCP (2019-01-09 09:15)
CPT/HCPCS: 36430; 47000; 70450; 71010; 71045; 74019; 74020; 74177; 74183; 74330; 77012; 80048; 80053; 80076; 81001; 81025; 82105; 82140; 82150; 82310; 82330; 82378; 82397; 82550; 82607; 82728; 82746; 82784; 83540; 83550; 83605; 83690; 83735; 83970; 84100; 84155; 84165; 84484; 85014; 85018; 85025; 85610; 85730; 86301; 86334; 86850; 86900; 86901; 86920; 87040; 88305; 96365; 96366; 96367; 96375; 97162; 97530; 99285; A9270; A9579; C1769; C2617; J0630; J0696; J1610; J1885; J1940; J2270; J2405; J2430; J2543; J2550; J2780; J3010; J3480; J7030; P9016; Q9966; Q9967